=== PATIENT | female | born 1930 | race Caucasian/White ===

== ENCOUNTER → 2018-07-09 | Outpatient (CLI) | payer MEDICARE ==
--- NOTE | 2018-07-10 12:33 | ECHOF ---
Referral Reason:I35.0 Nonrheumatic aortic (valve) stenosis MEASUREMENTS -------- HEIGHT: 154.9 cm WEIGHT: 73.9 kg BP: IVSd: 1.5 cm (0.6 - 1.1) LVIDd: 2.2 cm (3.9 - 5.3) LVPWd: 1.7 cm (0.6 - 1.1) IVSs: 1.7 cm LVIDs: 1.3 cm LVPWs: 1.9 cm LAESV Index (A-L): 21.57 ml/m Ao Diam: 2.7 cm (2.0 - 3.7) AV Cusp: 0.8 cm (1.5 - 2.6) LA Diam: 2.8 cm (2.7 - 3.8) MV EXCURSION: 5.900 mm (> 18.000) MV EF SLOPE: 34 mm/s (70 - 150) EPSS: 0.3 cm MV E Isrrael: 0.71 m/s MV DecT: 197 ms MV A Isrrael: 1.17 m/s MV E/A Ratio: 0.61 AV maxP.63 mmHg AV meanP.79 mmHg AR PHT: 464 ms RAP: 5.00 mmHg RVSP: 23.61 mmHg FINDINGS -------- Sinus rhythm. This was a technically good study. The left ventricular size is normal. There is severe concentric left ventricular hypertrophy. Ove rall left ventricular systolic function is normal with, an EF between 55 - 60 %. The right ventricle is normal in size and function. The left atrium is normal in size. The right atrium is normal in size. Aortic valve is trileaflet and is moderately thickened. There is mild aortic regurgitation. There is mild aortic stenosis present. Peak/mean gradient across the Aortic Valve is 24.63mmHg / 13.79mm Hg. The mitral valve leaflets are mildly thickened. Mild mitral annular calcification present. Mild m itral regurgitation is present. Mild tricuspid regurgitation present. The right ventricular systolic pressure, as measured by Doppl er, is 23.61mmHg. Pulmonic valve appears structurally normal. The aortic root size is normal. The pericardium is normal. CONCLUSIONS -------- 1. Sinus rhythm. 2. This was a technically good study. 3. The left ventricular size is normal. 4. There is severe concentric left ventricular hypertrophy. 5. Overall left ventricular systolic function is normal with, an EF between 55 - 60 %. 6. The right ventricle is normal in size and function. 7. The left atrium is normal in size. 8. The right atrium is normal in size. 9. Aortic valve is trileaflet and is moderately thickened. 10. There is mild aortic regurgitation. 11. There is mild aortic stenosis present. 12. Peak/mean gradient across the Aortic Valve is 24.63mmHg / 13.79mmHg. 13. The mitral valve leaflets are mildly thickened. 14. Mild mitral annular calcification present. 15. Mild mitral regurgitation is present. 16. Mild tricuspid regurgitation present. 17. The right ventricular systolic pressure, as measured by Doppler, is 23.61mmHg. 18. Pulmonic valve appears structurally normal. 19. The aortic root size is normal. 20. The pericardium is normal. DESKTOP SUPPORT SPECIALIST: Christiana Cuevas RDCS
== END ==
LOC: RADECHMAIN 14:23
PROVIDERS: ATTEND Family Medicine
DX: I08.3 Combined rheumatic disorders of mitral, aortic and tricuspid valves (principal)
CPT/HCPCS: 93306

== ENCOUNTER 2019-04-24 14:40 | Inpatient (IN) | payer MEDICARE ==
--- NOTE | 2019-04-24 15:37 | ED ---
General Adult HPI - General Chief complaint: Shortness of Breath Stated complaint: SOB Time Seen by Provider: 04/24/19 14:50 Source: patient, RN notes reviewed Mode of arrival: wheelchair Limitations: no limitations - History of Present Illness Initial comments: This is an 89-year-old female presents emergency Department with a past medical history significant for COPD. Patient states over the last month she's been weaker and lightheaded particularly when she is more active. Patient states since yesterday she started to get shortness of breath with any activity and she decided to come to the emergency department after she spoke with her primary medical care doctor. Patient denies any recent fever or chills per patient states she's had a slight cough but no sputum production. Patient denies any chest pain or palpitations. Patient denies any abdominal pain patient denies nausea vomiting diarrhea. Patient denies any leg swelling or calf tenderness. Patient denies headache patient denies numbness or weakness. - Related Data Home Medications Medication Instructions Recorded Confirmed Albuterol Sulfate [Proair Hfa] 2 puff INHALATION RT-QID PRN 07/28/16 04/24/19 Ascorbic Acid [Vitamin C] 500 mg PO DAILY 07/28/16 04/24/19 Atenolol [Tenormin] 25 mg PO HS 07/28/16 04/24/19 HYDROcodone/APAP 5-325MG [[place] 1 tab PO TID PRN 07/28/16 04/24/19 5-325] Omeprazole 20 mg PO BID 07/28/16 04/24/19 Cholecalciferol [Vitamin D3 (25 5,000 unit PO DAILY 04/24/19 04/24/19 Mcg = 1000 Iu)] Levothyroxine Sodium [Synthroid] 100 mcg PO DAILY 04/24/19 04/24/19 Allergies Allergy/AdvReac Type Severity Reaction Status Date / Time Antihistamines - Alkylamine Allergy Unknown Verified 04/24/19 16:10 ascorbic acid Allergy Unknown Verified 04/24/19 16:10 [From PreserVision AREDS-2] cephalexin [From Keflex] Allergy Unknown Verified 04/24/19 16:10 clopidogrel [From Plavix] Allergy Unknown Verified 04/24/19 16:10 copper Allergy Unknown Verified 04/24/19 16:10 [From PreserVision AREDS-2] lavender (Lavandula Allergy Unknown Verified 04/24/19 16:10 angustifolia) lutein Allergy Unknown Verified 04/24/19 16:10 [From PreserVision AREDS-2] quinine Allergy Unknown Verified 04/24/19 16:10 vitamin E acetate (dl-alpha Allergy Unknown Verified 04/24/19 16:10 tocopheryl) [From PreserVision AREDS-2] zeaxanthin Allergy Unknown Verified 04/24/19 16:10 [From PreserVision AREDS-2] zinc oxide Allergy Unknown Verified 04/24/19 16:10 [From PreserVision AREDS-2] Review of Systems ROS Statement: Those systems with pertinent positive or pertinent negative responses have been documented in the HPI. ROS Other: All systems not noted in ROS Statement are negative. Past Medical History Past Medical History: COPD, GERD/Reflux, Hypertension, Myocardial Infarction ([place]), Osteoarthritis (OA), Thyroid Disorder Additional Past Medical History / Comment(s): hx AORTIC STENOSIS, OSTEOPOROSIS, hx ANEMIA, told years ago she had "silent heart attack", constipation, gallstones, vaginal itching, urinary leakage, Last Myocardial Infarction Date:: unknown History of Any Multi-Drug Resistant Organisms: None Reported Past Surgical History: Appendectomy, Section, Ear Surgery, Heart Catheterization With Stent, Hysterectomy, Joint Replacement, Orthopedic Surgery Additional Past Surgical History / Comment(s): ANGIOPLASTY, RIGHT WRIST ORIF, LEFT KNEE replacement, malissa CATARACTS Past Anesthesia/Blood Transfusion Reactions: No Reported Reaction Date of Last Stent Placement:: approx 2007 Past Psychological History: No Psychological Hx Reported Smoking Status: Former smoker Past Alcohol Use History: None Reported, Rare Past Drug Use History: None Reported - Past Family History Daughter(s) Family Medical History: Cancer Brother(s) Family Medical History: Deep Vein Thrombosis (DVT) General Exam - General Exam Comments Initial Comments: GENERAL: Patient is well-developed and well-nourished. Patient is nontoxic and well- hydrated and is in mild distress. ENT: Neck is soft and supple. No significant lymphadenopathy is noted. Oropharynx is clear. Moist mucous membranes. Neck has full range of motion without eliciting any pain. EYES: The sclera were anicteric and conjunctiva were pink and moist. Extraocular movements were intact and pupils were equal round and reactive to light. Eyelids were unremarkable. PULMONARY: Unlabored respirations. Good breath sounds bilaterally. No audible rales rhonchi or wheezing was noted. CARDIOVASCULAR: Patient is bradycardic at 45 beats a minute ABDOMEN: Soft and nontender with normal bowel sounds. SKIN: Skin is clear with no lesions or rashes and otherwise unremarkable. NEUROLOGIC: Patient is alert and oriented x3. Cranial nerves II through XII are grossly intact. Motor and sensory are also intact. Normal speech, volume and content. Symmetrical smile. MUSCULOSKELETAL: Normal extremities with adequate strength and full range of motion. LYMPHATICS: No significant lymphadenopathy is noted PSYCHIATRIC: Normal psychiatric evaluation. Limitations: no limitations Course Vital Signs 04/24/19 14:51 Temperature 98.6 F Pulse Rate 49 L Respiratory 18 Rate Blood Pressure 145/68 O2 Sat by Pulse 94 L Oximetry Medical Decision Making - Medical Decision Making EKG shows atrial flutter at a rate of 50 beats a minute QRS is 90 QT interval is 516 QTC is 470. Chest x-ray shows pulmonary edema. I spoke with Dr. Shultz he agreed to admit the patient admitted the patient and wrote admitting orders I repeated troponin was mildly elevated I added Lasix because of the pulmonary edema and I continued Lasix and heparin on the floor. I repeated troponins on the floor as well. I consult to cardiology. - Lab Data Result diagrams: 04/24/19 15:45 04/24/19 15:45 Lab Results 04/24/19 04/24/19 04/24/19 Range/Units 15:45 15:45 15:45 WBC 9.4 (3.8-10.6) k/uL RBC 4.26 (3.80-5.40) m/uL Hgb 12.8 (11.4-16.0) gm/dL Hct 40.3 (34.0-46.0) % MCV 94.7 (80.0-100.0) fL MCH 30.1 (25.0-35.0) pg MCHC 31.8 (31.0-37.0) g/dL RDW 15.2 (11.5-15.5) % Plt Count 247 (150-450) k/uL Neutrophils % 70 % Lymphocytes % 19 % Monocytes % 8 % Eosinophils % 1 % Basophils % 0 % Neutrophils # 6.5 (1.3-7.7) k/uL Lymphocytes # 1.8 (1.0-4.8) k/uL Monocytes # 0.8 (0-1.0) k/uL Eosinophils # 0.1 (0-0.7) k/uL Basophils # 0.0 (0-0.2) k/uL Sodium 137 (137-145) mmol/L Potassium 4.4 (3.5-5.1) mmol/L Chloride 107 (98-107) mmol/L Carbon Dioxide 20 L (22-30) mmol/L Anion Gap 10 mmol/L BUN 20 H (7-17) mg/dL Creatinine 1.13 H (0.52-1.04) mg/dL Est GFR (CKD-EPI)AfAm 50 (>60 ml/min/1.73 sqM) Est GFR (CKD-EPI)NonAf 44 (>60 ml/min/1.73 sqM) Glucose 116 H (74-99) mg/dL Calcium 9.5 (8.4-10.2) mg/dL Magnesium 1.9 (1.6-2.3) mg/dL Total Bilirubin 1.0 (0.2-1.3) mg/dL AST 25 (14-36) U/L ALT 36 (9-52) U/L Alkaline Phosphatase 70 (38-126) U/L Troponin I (0.000-0.034) ng/mL NT-Pro-B Natriuret Pep 9780 pg/mL Total Protein 6.7 (6.3-8.2) g/dL Albumin 3.7 (3.5-5.0) g/dL 04/24/19 Range/Units 15:45 WBC (3.8-10.6) k/uL RBC (3.80-5.40) m/uL Hgb (11.4-16.0) gm/dL Hct (34.0-46.0) % MCV (80.0-100.0) fL MCH (25.0-35.0) pg MCHC (31.0-37.0) g/dL RDW (11.5-15.5) % Plt Count (150-450) k/uL Neutrophils % % Lymphocytes % % Monocytes % % Eosinophils % % Basophils % % Neutrophils # (1.3-7.7) k/uL Lymphocytes # (1.0-4.8) k/uL Monocytes # (0-1.0) k/uL Eosinophils # (0-0.7) k/uL Basophils # (0-0.2) k/uL Sodium (137-145) mmol/L Potassium (3.5-5.1) mmol/L Chloride (98-107) mmol/L Carbon Dioxide (22-30) mmol/L Anion Gap mmol/L BUN (7-17) mg/dL Creatinine (0.52-1.04) mg/dL Est GFR (CKD-EPI)AfAm (>60 ml/min/1.73 sqM) Est GFR (CKD-EPI)NonAf (>60 ml/min/1.73 sqM) Glucose (74-99) mg/dL Calcium (8.4-10.2) mg/dL Magnesium (1.6-2.3) mg/dL Total Bilirubin (0.2-1.3) mg/dL AST (14-36) U/L ALT (9-52) U/L Alkaline Phosphatase (38-126) U/L Troponin I 0.071 H* (0.000-0.034) ng/mL NT-Pro-B Natriuret Pep pg/mL Total Protein (6.3-8.2) g/dL Albumin (3.5-5.0) g/dL Disposition Clinical Impression: Bradycardia, Pulmonary edema, New onset atrial flutter Disposition: ADMITTED IP TO THIS HOSP Referrals: Angela Da Silva MD [Primary Care Provider] - 1-2 days Time of Disposition: 17:05
[2019-04-24 16:25] LABS: Basophils % (A) 0 %; Eosinophils # (A) 0.1 k/uL (0-0.7); Eosinophils % (A) 1 %; HCT 40.3 % (34.0-46.0); HGB 12.8 gm/dL (11.4-16.0); Lymphocytes # (A) 1.8 k/uL (1.0-4.8); Lymphocytes % (A) 19 %; MCH 30.1 pg (25.0-35.0); MCHC 31.8 g/dL (31.0-37.0); MCV 94.7 fL (80.0-100.0); Mean Platelet Volume 8.7; Monocytes # (A) 0.8 k/uL (0-1.0); Monocytes % (A) 8 %; Neutrophils # (A) 6.5 k/uL (1.3-7.7); Neutrophils % (A) 70 %; Platelet Count 247 k/uL (150-450); RBC 4.26 m/uL (3.80-5.40); RDW 15.2 % (11.5-15.5); WBC 9.4 k/uL (3.8-10.6)
[2019-04-24 16:27] LABS: Albumin 3.7 g/dL (3.5-5.0); Calcium 9.5 mg/dL (8.4-10.2); Magnesium 1.9 mg/dL (1.6-2.3); Potassium 4.4 mmol/L (3.5-5.1); Total Protein 6.7 g/dL (6.3-8.2)
[2019-04-24 16:36] LABS: INR 1.1 (<1.2)
[2019-04-24 16:37] LABS: Partial Thromboplastin Time 22.6 sec (22.0-30.0); Prothrombin Time 11.5 sec (9.0-12.0)
--- NOTE | 2019-04-24 16:39 | XR ---
EXAMINATION: XR chest 2V DATE AND TIME: 04/24/2019 4:35 PM CLINICAL INDICATION: PHH; difficulty breathing TECHNIQUE: Departmental protocol COMPARISON: 11/14/2010 FINDINGS: The pulmonary vasculature is mildly silhouetted by a fine reticular pattern of increased attenuation bilaterally throughout the lungs and reaching the periphery as septal lines. No evidence of atelectas is or lung consolidation. Scant volume of bilateral pleural effusions noted. No pneumothorax or other abnormal gas collection. The cardiac silhouette is moderately enlarged. Tortuous thoracic aorta noted. The skeletal structures and soft tissues are negative for acute findings. IMPRESSION: Mild interstitial phase cardiogenic pulmonary edema pattern.
[2019-04-24] MEDS ORDERED: HEPARIN SODIUM,PORCINE 5,000 UNIT/ML 1 ML VIAL IV ONE (16:55)
[2019-04-24] MEDS ORDERED: NITROGLYCERIN SL TABS 0.4 MG TAB SUBLINGUAL PRN (16:55)
[2019-04-24] MEDS ORDERED: FUROSEMIDE 10 MG/ML 2 ML VIAL IV STA (17:00)
[2019-04-24 17:06] LABS: D-Dimer 0.78 mg/L FEU (<0.60)
[2019-04-24] MEDS: HEPARIN SOD,PORK IN 0.45% NACL 25,000 UNIT in 0.45% NACL 1 250ML.BAG IV SCH (17:44)
[2019-04-24 20:47] VITALS: BMI 33.5
[2019-04-24] MEDS: FUROSEMIDE 10 MG/ML 2 ML VIAL IV SCH (21:16)
[2019-04-24] MEDS ORDERED: ALBUTEROL NEBULIZED 2.5 MG/3 ML INHALATION PRN (23:25)
[2019-04-24] MEDS: LOSARTAN 25 MG TAB PO SCH (23:37)
[2019-04-24] MEDS: HYDROcodone/APAP 5-325MG 1 EACH TAB PO PRN (23:37)
[2019-04-25 04:39] LABS: Cholesterol 158 mg/dL (<200); HDL Cholesterol 47 mg/dL (40-60); LDL Cholesterol,Calculated 91 mg/dL (0-99); Triglycerides 99 mg/dL (<150)
[2019-04-25] MEDS ORDERED: LEVOTHYROXINE 100 MCG TAB PO SCH (06:30)
[2019-04-25 06:47] LABS: HCT 35.7 % (34.0-46.0); HGB 11.4 gm/dL (11.4-16.0); MCH 31.4 pg (25.0-35.0); MCHC 31.9 g/dL (31.0-37.0); MCV 98.4 fL (80.0-100.0); Mean Platelet Volume 8.4; Platelet Count 215 k/uL (150-450); RBC 3.62 m/uL (3.80-5.40); RDW 15.2 % (11.5-15.5)
[2019-04-25 07:24] LABS: Calcium 8.6 mg/dL (8.4-10.2); Potassium 4.4 mmol/L (3.5-5.1)
[2019-04-25] MEDS: LEVOTHYROXINE 100 MCG TAB PO SCH (08:11)
[2019-04-25] MEDS: ASCORBIC ACID 500 MG TAB PO SCH (08:11)
[2019-04-25] MEDS: CHOLECALCIFEROL 1,000 UNIT TAB PO SCH (08:11)
[2019-04-25] MEDS: FUROSEMIDE 10 MG/ML 2 ML VIAL IV SCH ×2 (08:11→20:05)
[2019-04-25] MEDS: ASPIRIN 325 MG TAB PO SCH (08:11)
[2019-04-25] MEDS: PANTOPRAZOLE 40 MG TABLET PO SCH ×2 (08:12→20:05)
[2019-04-25] MEDS: LOSARTAN 25 MG TAB PO SCH (08:12)
[2019-04-25] MEDS: HYDROcodone/APAP 5-325MG 1 EACH TAB PO PRN ×2 (08:20→23:16)
--- NOTE | 2019-04-25 08:33 | P.HPIM ---
History of Present Illness H&P Date: 04/25/19 Florencia Elam is an 89 year old female patient of Dr Da Silva who presented to [facility] emergency room with a chief complaint of worsening shortness of breath that started today before admission. Patient stated that for about 1 month she has been complaining of feeling weak and being lightheaded without any specific symptoms, she started having shortness of breath on the day prior to presentation. Patient denies any chest pain there is no fever or chills no cough no headache no dizziness no nausea or vomiting no abdominal pain no diarrhea no burning was urination no frequency or urgency and no hematuria. Patient had an echocardiogram in June 2018 which revealed normal left ventricular size and function was an ejection fraction of 55-60% EKG on presentation revealed mild interstitial phase cardiogenic pulmonary edema patient was given IV Lasix in the emergency room and her shortness of breath improved significantly. EKG on presentation revealed evidence of atrial fibrillation with slow ventricular response. Past Medical History Past Medical History: Atrial Fibrillation, COPD, GERD/Reflux, Hypertension, Myocardial Infarction ([place]), Osteoarthritis (OA), Thyroid Disorder Additional Past Medical History / Comment(s): hx AORTIC STENOSIS, OSTEOPOROSIS, hx ANEMIA, told years ago she had "silent heart attack", constipation, gallstones, vaginal itching, urinary leakage,. Pt states she was told when she had an NC, she had a temporary irregular heart rate but never followed up on it 04/24/19 Last Myocardial Infarction Date:: unknown History of Any Multi-Drug Resistant Organisms: None Reported Past Surgical History: Appendectomy, Section, Ear Surgery, Heart Catheterization With Stent, Hysterectomy, Joint Replacement, Orthopedic Surgery Additional Past Surgical History / Comment(s): ANGIOPLASTY, RIGHT WRIST ORIF, LEFT KNEE replacement, malissa CATARACTS Past Anesthesia/Blood Transfusion Reactions: No Reported Reaction Date of Last Stent Placement:: approx 2007 Past Psychological History: No Psychological Hx Reported Smoking Status: Former smoker Past Alcohol Use History: None Reported, Rare Additional Past Alcohol Use History / Comment(s): quit smoking 2007, smoked for 60 yrs, 1PPD Past Drug Use History: None Reported - Past Family History Daughter(s) Family Medical History: Cancer Brother(s) Family Medical History: Deep Vein Thrombosis (DVT) Medications and Allergies Home Medications Medication Instructions Recorded Confirmed Type Albuterol Sulfate [Proair Hfa] 2 puff INHALATION RT-QID PRN 07/28/16 04/24/19 History Ascorbic Acid [Vitamin C] 500 mg PO DAILY 07/28/16 04/24/19 History Atenolol [Tenormin] 25 mg PO HS 07/28/16 04/24/19 History HYDROcodone/APAP 5-325MG [[place] 1 tab PO TID PRN 07/28/16 04/24/19 History 5-325] Omeprazole 20 mg PO BID 07/28/16 04/24/19 History Cholecalciferol [Vitamin D3 (25 5,000 unit PO DAILY 04/24/19 04/24/19 History Mcg = 1000 Iu)] Levothyroxine Sodium [Synthroid] 100 mcg PO DAILY 04/24/19 04/24/19 History Allergies Allergy/AdvReac Type Severity Reaction Status Date / Time Antihistamines - Alkylamine Allergy Unknown Verified 04/24/19 16:10 ascorbic acid Allergy Unknown Verified 04/24/19 16:10 [From PreserVision AREDS-2] cephalexin [From Keflex] Allergy Unknown Verified 04/24/19 16:10 clopidogrel [From Plavix] Allergy Unknown Verified 04/24/19 16:10 copper Allergy Unknown Verified 04/24/19 16:10 [From PreserVision AREDS-2] lavender (Lavandula Allergy Unknown Verified 04/24/19 16:10 angustifolia) lutein Allergy Unknown Verified 04/24/19 16:10 [From PreserVision AREDS-2] quinine Allergy Unknown Verified 04/24/19 16:10 vitamin E acetate (dl-alpha Allergy Unknown Verified 04/24/19 16:10 tocopheryl) [From PreserVision AREDS-2] zeaxanthin Allergy Unknown Verified 04/24/19 16:10 [From PreserVision AREDS-2] zinc oxide Allergy Unknown Verified 04/24/19 16:10 [From PreserVision AREDS-2] Physical Exam Vitals: Vital Signs Temp Pulse Pulse Resp BP BP Pulse Ox 04/25/19 04:00 44 L 18 100/45 96 04/24/19 23:58 98 F 46 L 18 178/69 96 04/24/19 20:00 98 F 50 L 19 164/93 99 04/24/19 19:24 48 L 16 104/92 96 04/24/19 19:23 98.6 F 49 L 18 145/68 94 L 04/24/19 18:55 52 L 18 174/56 96 04/24/19 16:55 48 L 18 172/68 96 04/24/19 14:51 98.6 F 49 L 18 145/68 94 L Intake and Output 04/24/19 04/25/19 04/25/19 22:59 06:59 14:59 Intake Total 64.514 54.784 Output Total 600 100 Balance -535.486 -45.216 Intake: Intake, IV Titration 64.514 54.784 Amount Heparin Sod,Pork in 0.45% 64.514 54.784 NaCl 25,000 unit In 0.45 % NaCl 1 250ml.bag @ 12 UNITS/KG/HR 8.981 mls/hr IV .Q24H [facility] Rx#: [id number] Output: Urine 600 100 Other: Voiding Method Diaper Diaper Incontinent Incontinent # Voids 1 Weight 74.1 kg In general patient is alert and oriented 3 in no apparent distress HEENT head normocephalic and atraumatic Neck is supple no JVD no goiter no lymphadenopathy no carotid bruit Chest exam reveals a few scattered rhonchi no wheezing Cardiac exam reveals irregular heart sounds S1 and S2 with bradycardia no gallops no murmurs Abdomen is soft nontender no organomegaly with normal bowel sounds Extremity exam reveals no edema no cyanosis or clubbing Neurological examination reveals no gross focal deficit Results CBC & Chem 7: 04/25/19 05:59 04/25/19 05:59 Labs: Abnormal Lab Results - Last 24 Hours (Table) 04/24/19 04/24/19 04/24/19 Range/Units 15:45 15:45 15:45 RBC (3.80-5.40) m/uL APTT (22.0-30.0) sec D-Dimer 0.78 H (<0.60) mg/L FEU Carbon Dioxide 20 L (22-30) mmol/L BUN 20 H (7-17) mg/dL Creatinine 1.13 H (0.52-1.04) mg/dL Glucose 116 H (74-99) mg/dL Troponin I 0.071 H* (0.000-0.034) ng/mL 04/24/19 04/24/19 04/25/19 Range/Units 21:59 23:53 03:47 RBC (3.80-5.40) m/uL APTT 49.4 H (22.0-30.0) sec D-Dimer (<0.60) mg/L FEU Carbon Dioxide (22-30) mmol/L BUN (7-17) mg/dL Creatinine (0.52-1.04) mg/dL Glucose (74-99) mg/dL Troponin I 0.053 H* 0.043 H* (0.000-0.034) ng/mL 04/25/19 04/25/19 04/25/19 Range/Units 05:59 05:59 05:59 RBC 3.62 L (3.80-5.40) m/uL APTT 45.5 H (22.0-30.0) sec D-Dimer (<0.60) mg/L FEU Carbon Dioxide (22-30) mmol/L BUN 23 H (7-17) mg/dL Creatinine 1.53 H (0.52-1.04) mg/dL Glucose (74-99) mg/dL Troponin I (0.000-0.034) ng/mL Thrombosis Risk Factor Assmnt - Choose All That Apply Any of the Below Risk Factors Present?: Yes Each Factor Represents 1 point: Obesity (BMI >25), Swollen legs (current) Other Risk Factors: Yes Each Risk Factor Represents 3 Points: Age 75 years or older Other congenital or acquired thrombophilia - If yes, enter type in comment: No Thrombosis Risk Factor Assessment Total Risk Factor Score: 5 Thrombosis Risk Factor Assessment Level: High Risk Assessment and Plan Assessment: #1 worsening shortness of breath multifactorial related to acute congestive heart failure with pulmonary edema possibly diastolic heart failure #2 atrial fibrillation with slow ventricular response #3 slight elevation in troponin level #4 underlying history of hypothyroidism Will check TSH #5 underlying history of COPD maintained on albuterol updraft at home Plan at this time to continue was current management cardiology consultation has been requested Patient was started on IV heparin Her shortness of breath has improved significantly after 1 dose of IV Lasix Will monitor closely
--- NOTE | 2019-04-25 10:28 | CONS ---
CONSULTATION CHIEF COMPLAINT: Shortness of breath. Florencia is an 89-year-old lady with history of hypothyroidism, hypertension, prior coronary artery disease who presented to hospital complaining of worsening shortness of breath. It is mild to moderate intensity, came on with exertion and was relieved with rest. These symptoms were going on for the last one month and have gotten worse over the last several days prior to coming in. She does not have any chest pain. Denies palpitations, syncope, dizziness or focal neurological deficits. There is no history of leg edema. She had an echocardiogram done in June of 2018 that revealed sinus with high-grade AV block intermittently. It showed normal LV systolic function with mild aortic stenosis. At the time of my evaluation this morning, she appears comfortable at rest and is free of significant symptoms. EKG on her initial presentation revealed atrial fibrillation with slow ventricular rate to last night she had episodes where she was in sinus rhythm with high-grade AV block. She was on Tenormin. This has been stopped. The patient's shortness of breath is probably related to atrial fibrillation with slow ventricular rate, and she will benefit from a permanent pacemaker. She has known CAD and had prior angioplasty. On this admission the troponins are elevated, but this happened in the context of elevated creatinine. Her creatinine has gone up to 1.5 from 1.1 on admission. LDL cholesterol is 91. She also had elevated BNP and received Lasix for acute onset of diastolic heart failure. PAST MEDICAL HISTORY: Past medical history is significant for: 1. CAD, status post angioplasty. 2. Hypothyroidism. MEDICATIONS: Medications at home included: 1. Omeprazole. 2. Synthroid. 3. Thor. 4. Vitamin D. 5. Tenormin. 6. Vitamin C. ALLERGIES: She has MULTIPLE DRUG ALLERGIES, includin. KEFLEX. 2. PLAVIX. 3. QUININE. 4. ZINC OXIDE. FAMILY HISTORY: Negative for premature coronary artery disease. SOCIAL HISTORY: Negative for current smoking, EtOH abuse or drug abuse. REVIEW OF SYSTEMS: HEENT is unremarkable. CARDIAC: As described above. RESPIRATORY: As described above. GI: Negative. GENITOURINARY: Negative. ALLERGY/IMMUNOLOGIC: Negative. SKIN: Negative. MUSCULOSKELETAL: Significant for arthritis. PSYCHOSOCIAL: Negative. ENDOCRINE: Negative. DERMATOLOGICAL: Negative. CONSTITUTIONAL: Negative. ONCOLOGICAL: Negative. Rest of the system review is not relevant. PHYSICAL EXAMINATION: Heart rate is 44 beats per minute. Blood pressure is 130/90, respiratory rate 18. Oxygen saturation is 97%. There is no jugular venous distention. Carotid upstroke is normal. There is no bruit. Chest exam reveals good air entry bilaterally. Heart exam reveals first and second heart sounds. No gallop. Has an ejection systolic murmur. Abdomen is soft. Examination of extremities did not reveal any edema. Peripheral pulses are felt. ASSESSMENT: 1. Atrial fibrillation with slow ventricular rate. 2. Shortness of breath due to a combination of diastolic heart failure and bradyarrhythmia. 3. Elevated troponin secondary to renal insufficiency. 4. Coronary artery disease, status post angioplasty. PLAN: I will continue the patient on IV heparin. She will need a permanent pacemaker. This will be done on Saturday for symptomatic bradycardia. I will obtain a 2D echo on this admission to assess her LV function. GYPSY / MARINON: [id number] /
[2019-04-25 11:55] LABS: Glucose,Whole Blood 102 mg/dL (75-99)
[2019-04-25] MEDS: HEPARIN SOD,PORK IN 0.45% NACL 25,000 UNIT in 0.45% NACL 1 250ML.BAG IV SCH (20:04)
[2019-04-26] MEDS: ASPIRIN 325 MG TAB PO SCH (09:03)
[2019-04-26] MEDS: LEVOTHYROXINE 100 MCG TAB PO SCH (09:03)
[2019-04-26] MEDS: CHOLECALCIFEROL 1,000 UNIT TAB PO SCH (09:03)
[2019-04-26] MEDS: LOSARTAN 25 MG TAB PO SCH (09:03)
[2019-04-26] MEDS: FUROSEMIDE 10 MG/ML 2 ML VIAL IV SCH (09:03)
[2019-04-26] MEDS: PANTOPRAZOLE 40 MG TABLET PO SCH ×2 (09:03→20:17)
[2019-04-26] MEDS: ASCORBIC ACID 500 MG TAB PO SCH (09:04)
[2019-04-26] MEDS: HYDROcodone/APAP 5-325MG 1 EACH TAB PO PRN ×2 (09:09→20:17)
--- NOTE | 2019-04-26 10:57 | ECHOF ---
Referral Reason:Aflutter/bradycardia MEASUREMENTS -------- HEIGHT: 149.9 cm WEIGHT: 73.9 kg BP: 126/53 RVIDd: 2.9 cm (< 3.3) IVSd: 1.3 cm (0.6 - 1.1) LVIDd: 3.6 cm (3.9 - 5.3) LVPWd: 1.2 cm (0.6 - 1.1) IVSs: 1.7 cm LVIDs: 2.1 cm LVPWs: 1.6 cm LA Diam: 3.4 cm (2.7 - 3.8) LAESV Index (A-L): 38.79 ml/m Ao Diam: 3.4 cm (2.0 - 3.7) AV Cusp: 1.4 cm (1.5 - 2.6) MV EXCURSION: 7.158 mm (> 18.000) MV EF SLOPE: 24 mm/s (70 - 150) EPSS: 0.6 cm MV E Isrrael: 1.22 m/s MV DecT: 259 ms MV A Isrrael: 1.15 m/s MV E/A Ratio: 1.07 AV maxP.31 mmHg AV meanP.39 mmHg AR PHT: 440 ms RAP: 15.00 mmHg RVSP: 52.89 mmHg FINDINGS -------- Sinus rhythm. This was a technically good study. The left ventricular size is normal. There is mild concentric left ventricular hypertrophy. Overa ll left ventricular systolic function is normal with, an EF between 60 - 65 %. The right ventricle is normal in size. LA is moderately dilated 34-39 ml/m2 The right atrium is normal in size. Interatrial and interventricular septum intact. There is moderate aortic valve sclerosis. There is mild aortic regurgitation. There is moderate a ortic stenosis present. Peak/mean gradient across the Aortic Valve is 32.31mmHg / 20.39mmHg. The mitral valve leaflets are mildly thickened. Mild mitral annular calcification present. Modera te mitral regurgitation is present. The peak and mean MV gradients are 10.24mmHg 3.79mmHg as measu red by doppler. Mild mitral stenosis. Mild tricuspid regurgitation present. There is moderate pulmonary hypertension. The right ventric ular systolic pressure, as measured by Doppler, is 52.89mmHg. Trace/mild (physiologic) pulmonic regurgitation. The aortic root size is normal. The inferior vena cava is dilated with poor inspiratory collapse which is consistent with estimated r ight atrial pressure of 15 mmHg. There is no pericardial effusion. CONCLUSIONS -------- 1. Sinus rhythm. 2. This was a technically good study. 3. The left ventricular size is normal. 4. There is mild concentric left ventricular hypertrophy. 5. Overall left ventricular systolic function is normal with, an EF between 60 - 65 %. 6. The right ventricle is normal in size. 7. LA is moderately dilated 34-39 ml/m2 8. The right atrium is normal in size. 9. Interatrial and interventricular septum intact. 10. There is moderate aortic valve sclerosis. 11. There is mild aortic regurgitation. 12. There is moderate aortic stenosis present. 13. Peak/mean gradient across the Aortic Valve is 32.31mmHg / 20.39mmHg. 14. The mitral valve leaflets are mildly thickened. 15. Mild mitral annular calcification present. 16. Moderate mitral regurgitation is present. 17. The peak and mean MV gradients are 10.24mmHg 3.79mmHg as measured by doppler. 18. Mild mitral stenosis. 19. Mild tricuspid regurgitation present. 20. There is moderate pulmonary hypertension. 21. The right ventricular systolic pressure, as measured by Doppler, is 52.89mmHg. 22. Trace/mild (physiologic) pulmonic regurgitation. 23. The aortic root size is normal. 24. The inferior vena cava is dilated with poor inspiratory collapse which is consistent with estimat ed right atrial pressure of 15 mmHg. 25. There is no pericardial effusion. UNDERWRITING SUPPORT SPECIALIST: Tiny Gimenez RDCS
--- NOTE | 2019-04-26 11:15 | P.PN ---
Subjective Progress Note Date: 04/26/19 Is is an 89-year-old female with history of hypothyroidism, hypertension, coronary artery disease, who presented to the hospital with symptoms of progressively worsening shortness of breath. Her EKG on presentation here showed atrial fibrillation with a slow ventricular rate and episodes of intermittent high degree AV block. She had been on Tenormin which was discontinued, and in spite of that her rate remains in the 40s today. It has been recommended by Dr. Aguilar that the patient undergo implantation of a permanent pacemaker. This will be performed tomorrow by Dr. Jackson. Blood pressure 132/58 this morning, heart rate 42, 98% on 2 of oxygen. Objective - Vital Signs Vital signs: Vital Signs Temp 98 F 04/26/19 08:00 Pulse 45 L 04/26/19 08:00 Resp 18 04/26/19 08:00 BP 132/59 04/26/19 08:00 Pulse Ox 98 04/26/19 08:00 Intake & Output 04/25/19 04/26/19 04/26/19 18:59 06:59 18:59 Intake Total 534.784 117.202 223.132 Output Total 400 700 Balance 134.784 -582.798 223.132 Weight 74.162 kg Intake: Intake, IV Titration 54.784 117.202 103.132 Amount Heparin Sod,Pork in 0.45% 54.784 117.202 103.132 NaCl 25,000 unit In 0.45 % NaCl 1 250ml.bag @ 12 UNITS/KG/HR 8.981 mls/hr IV .Q24H [facility] Rx#: [id number] Oral 480 120 Output: Urine 400 700 Other: Voiding Method Diaper Diaper Diaper Incontinent Incontinent Incontinent # Voids 2 1 # Bowel Movements 0 - Exam PHYSICAL EXAMINATION: GENERAL: 89-year-old female in no acute distress at the time of my examination HEENT: Head is atraumatic, normocephalic. Pupils equal, round. Sclera ani cteric. Conjunctiva are clear. Mucous membranes of the mouth are moist. Neck is supple. There is no elevated jugular venous pressure. No carotid bruit is heard. HEART EXAMINATION: Heart S1 S2 irregularly irregular systolic ejection murmur is heard. CHEST EXAMINATION: Lungs are clear to auscultation and precussion. No chest wall tenderness is noted on palpation or with deep breathing. ABDOMEN: Soft, nontender. Bowel sounds are heard. No organomegaly noted. EXTREMITIES: 2+ peripheral pulses with no evidence of peripheral edema and no calf tenderness noted. NEUROLOGIC patient is awake, alert and oriented 3 . - Labs CBC & Chem 7: 04/25/19 05:59 04/25/19 05:59 Labs: Abnormal Lab Results - Last 24 Hours (Table) 04/25/19 04/26/19 Range/Units 11:50 05:42 APTT 43.9 H (22.0-30.0) sec POC Glucose (mg/dL) 102 H (75-99) mg/dL Microbiology - Last 24 Hours (Table) 04/24/19 15:45 Blood Culture - Preliminary Blood No Growth after 24 hours Assessment and Plan Plan: Assessment and plan #1 persistent atrial fibrillation, slow ventricular response #2 shortness of breath, likely secondary to bradycardia arrhythmia #3 known history of coronary artery disease with prior PCI #4 hypertension #5 hyperlipidemia #6 non-[place] troponin elevation, likely secondary to renal insufficiency Plan Patient will undergo implantation of a permanent pacemaker tomorrow with Dr. Jackson. We will obtain a TSH level. Discontinue IV Lasix. Decrease aspirin 81 mg daily. The risks and the benefits were explained with the patient in detail. DNP note has been reviewed, I agree with a documented findings and plan of care. Patient was seen and examined.
[2019-04-26] MEDS: SODIUM CHLORIDE 0.9% 1,000 ML IV SCH ×2 (12:23)
[2019-04-26] MEDS: HEPARIN SOD,PORK IN 0.45% NACL 25,000 UNIT in 0.45% NACL 1 250ML.BAG IV SCH (18:32)
[2019-04-27] MEDS ORDERED: ceFAZolin 1,000 MG in SODIUM CHLORIDE 0.9% IRRIGATIO 250 ML IRRIGATION ONE (06:00)
[2019-04-27 07:22] LABS: Calcium 8.9 mg/dL (8.4-10.2); Potassium 4.8 mmol/L (3.5-5.1); Total Bilirubin 0.4 mg/dL (0.2-1.3); Total Protein 5.7 g/dL (6.3-8.2)
[2019-04-27 07:35] LABS: Basophils # (A) 0.1 k/uL (0-0.2); Basophils % (A) 1 %; Eosinophils # (A) 0.3 k/uL (0-0.7); Eosinophils % (A) 4 %; HCT 37.5 % (34.0-46.0); HGB 11.5 gm/dL (11.4-16.0); Lymphocytes # (A) 1.7 k/uL (1.0-4.8); Lymphocytes % (A) 27 %; MCH 30.3 pg (25.0-35.0); MCHC 30.6 g/dL (31.0-37.0); MCV 98.8 fL (80.0-100.0); Mean Platelet Volume 8.3; Monocytes # (A) 0.5 k/uL (0-1.0); Monocytes % (A) 8 %; Neutrophils # (A) 3.6 k/uL (1.3-7.7); Neutrophils % (A) 56 %; Platelet Count 228 k/uL (150-450); RDW 15.2 % (11.5-15.5); WBC 6.3 k/uL (3.8-10.6)
[2019-04-27] MEDS: SODIUM CHLORIDE 0.9% 1,000 ML IV SCH ×2 (08:53)
[2019-04-27] MEDS: ASCORBIC ACID 500 MG TAB PO SCH (08:53)
[2019-04-27] MEDS: LOSARTAN 25 MG TAB PO SCH (08:54)
[2019-04-27] MEDS: FUROSEMIDE 20 MG TAB PO SCH (08:54)
[2019-04-27] MEDS: CHOLECALCIFEROL 1,000 UNIT TAB PO SCH (08:54)
[2019-04-27] MEDS: ASPIRIN 81 MG PO SCH (08:54)
[2019-04-27] MEDS: LEVOTHYROXINE 100 MCG TAB PO SCH (08:54)
[2019-04-27] MEDS: PANTOPRAZOLE 40 MG TABLET PO SCH ×2 (08:54→19:44)
[2019-04-27] MEDS ORDERED: SODIUM CHLORIDE 0.9% 500 ML 500 ML IV ONE (10:32)
[2019-04-27] MEDS ORDERED: IOPAMIDOL-370 50ML BTL INJ ONE (10:35)
[2019-04-27] MEDS ORDERED: LIDOCAINE 1% INJ 10MG/ML (20 ML MDV) ONE (10:53)
[2019-04-27] MEDS ORDERED: MIDAZOLAM PF (FBP) 2 MG/2 ML VIAL IV ONE (11:08)
[2019-04-27] MEDS ORDERED: fentaNYL (PF) 50 MCG/ML 2 ML AMP ONE (11:09)
[2019-04-27] MEDS ORDERED: LIDOCAINE 1% INJ 10MG/ML (20 ML MDV) SQ ONE (11:09)
[2019-04-27] MEDS ORDERED: fentaNYL (PF) 50 MCG/ML 2 ML AMP IV ONE (11:12)
--- NOTE | 2019-04-27 11:53 | P.PN ---
Subjective Progress Note Date: 04/27/19 Florencia Elam is an 89 year old female patient of Dr Da Silva who presented to [facility] emergency room with a chief complaint of worsening shortness of breath that started today before admission. Patient stated that for about 1 month she has been complaining of feeling weak and being lightheaded without any specific symptoms, she started having shortness of breath on the day prior to presentation. Patient denies any chest pain there is no fever or chills no cough no headache no dizziness no nausea or vomiting no abdominal pain no diarrhea no burning was urination no frequency or urgency and no hematuria. Patient had an echocardiogram in June 2018 which revealed normal left ventricular size and function was an ejection fraction of 55-60% EKG on presentation revealed mild interstitial phase cardiogenic pulmonary edema patient was given IV Lasix in the emergency room and her shortness of breath improved significantly. EKG on presentation revealed evidence of atrial fibrillation with slow ventricular response. On 04/27/2018 patient is alert and oriented 3. Patient is going on for pacemaker placement per cardiology. Lasix has been transitioned to by mouth. Patient denies shortness breath or chest pain. Patient denies nausea vomiting and diarrhea. Patient denies any urinary burning or frequency Objective - Vital Signs Vital signs: Vital Signs Temp 96.7 F L 04/27/19 08:00 Pulse 45 L 04/27/19 08:00 Resp 18 04/27/19 03:10 BP 181/76 04/27/19 08:00 Pulse Ox 94 L 04/27/19 08:00 Intake & Output 04/26/19 04/27/19 04/27/19 18:59 06:59 18:59 Intake Total 818.215 50 Output Total 701 Balance 117.215 50 Weight 73.7 kg Intake: IV 50 Intake, IV Titration 218.215 Amount Heparin Sod,Pork in 0.45% 218.215 NaCl 25,000 unit In 0.45 % NaCl 1 250ml.bag @ 12 UNITS/KG/HR 8.981 mls/hr IV .Q24H [facility] Rx#: [id number] Oral 600 0 Output: Urine 701 Other: Voiding Method Diaper Bedside Commode Bedside Commode Incontinent # Voids 1 # Bowel Movements 0 - Exam In general patient is alert and oriented 3 in no apparent distress HEENT head normocephalic and atraumatic Neck is supple no JVD no goiter no lymphadenopathy no carotid bruit Chest exam reveals a few scattered rhonchi no wheezing Cardiac exam reveals irregular heart sounds S1 and S2 with bradycardia no gallops no murmurs Abdomen is soft nontender no organomegaly with normal bowel sounds Extremity exam reveals no edema no cyanosis or clubbing Neurological examination reveals no gross focal deficit - Labs CBC & Chem 7: 04/27/19 06:45 04/27/19 06:45 Labs: Abnormal Lab Results - Last 24 Hours (Table) 04/26/19 04/27/19 04/27/19 Range/Units 14:00 06:45 06:45 MCHC 30.6 L (31.0-37.0) g/dL APTT 55.1 H (22.0-30.0) sec BUN 33 H (7-17) mg/dL Creatinine 1.62 H (0.52-1.04) mg/dL Total Protein 5.7 L (6.3-8.2) g/dL Albumin 3.0 L (3.5-5.0) g/dL 04/27/19 Range/Units 06:45 MCHC (31.0-37.0) g/dL APTT 54.8 H (22.0-30.0) sec BUN (7-17) mg/dL Creatinine (0.52-1.04) mg/dL Total Protein (6.3-8.2) g/dL Albumin (3.5-5.0) g/dL Microbiology - Last 24 Hours (Table) 04/24/19 15:45 Blood Culture - Preliminary Blood No Growth after 48 hours Assessment and Plan Assessment: #1 worsening shortness of breath multifactorial related to acute congestive heart failure with pulmonary edema possibly diastolic heart failure #2 atrial fibrillation with slow ventricular response #3 slight elevation in troponin level #4 underlying history of hypothyroidism. TSH 2.170 #5 underlying history of COPD maintained on albuterol updraft at home #6. Acute kidney injury. Creatinine increasing to 1.6 to and bun 33. We'll continue to monitor. Patient has been transitioned to oral Lasix Patient to undergo pacemaker placement today. DVT prophylaxis heparin drip. GI prophylaxis Protonix I performed an examination of the patient and discussed their management with the Nurse Practitioner. I have reviewed the Nurse Practitioner's notes and a gree with the documented findings and plan of care
[2019-04-27] MEDS ORDERED: ACETAMINOPHEN TAB 325 MG TAB PO PRN (12:02)
--- NOTE | 2019-04-27 12:09 | P.PCN ---
Date of Procedure: 04/27/19 Preoperative Diagnosis: Sick sinus syndrome, atrial flutter/fibrillation and also evidence of high degree AV block Postoperative Diagnosis: Permanent pacemaker implantation Procedure(s) Performed: Insertion of the permanent pacemaker, single chamber, axillary venography Description of Procedure: HISTORY: This is a 89-year-old female was admitted to the hospital with evidence of sick sinus syndrome and bradycardia with underlying high degree AV block and also atrial flutter/fibrillation. Patient is advised to have permanent pacemaker implantation. CONSENT:I have discussed the risks, benefits and alternative therapies for the above-mentioned procedure and for both sedation/analgesia as well as necessary blood product administration, if indicated, as they pertain to this patient. The patient has indicated understanding and acceptance of the risks and procedures discussed. PROCEDURE: Patient was brought to the lab in a fasting state. Patient was prepped and draped in the usual fashion. Patient was given IV sedation with fentanyl and Versed. The skin below the left clavicle was infiltrated with lidocaine. An incision was made parallel to deltopectoral groove was deepened until the pectoral fascia was exposed. A pocket was created by blunt dissection and cautery. Axillary venography was performed to delineate the course of the axillary vein. A single stick were performed into extrathoracic portion of the axillary vein and a single sheath was advanced over the guidewire and left in subclavian vein. Conscious Sedation: Versed 0.5mg Fentanyl 25 g Duration 41 minutes LEADS: VENTRICULAR: This is manufactured by [employer]. Model number is [id number] and the serial number is [id number] The ventricular lead is maneuvered l with help of a straight and curved stylets into the left ventricle apical region. Satisfactory position was obtained and threshold measurements were made. THRESHOLDS: VENTRICLE: The minimal patient threshold was 0.5 at pulse width of 0.5 ms. The impedance was 1584. The R-wave is 22.4. The leads and pulse generator remained in the pocket after it was washed with antibiotics. Pocket was closed in the usual fashion. The fascia was closed with 2-0 Prolene ,the subcutaneous tissue was closed with 3-0 Prolene and the skin was closed with 4-0 Prolene. PROGRAMMING: MODE: VVI RATE: 60 to 130 OUTPUT: Ventricle: 3.5 V FINAL IMPRESSION: #1. Axillary venography #2. Successful implantation of single-chamber permanent pacemaker implantation COMPLICATIONS:. None PLAN:. Patient will be monitored on the telemetry unit. Chest x-ray will obtain in the morning. Prophylactic antibiotics to be continued
[2019-04-27 19:46] VITALS: PULSE 60
[2019-04-28] MEDS: HYDROcodone/APAP 5-325MG 1 EACH TAB PO PRN (00:41)
[2019-04-28 05:37] VITALS: RESP 16
[2019-04-28] MEDS: SODIUM CHLORIDE 0.9% 1,000 ML IV SCH (05:38)
[2019-04-28 07:51] LABS: Basophils % (A) 0 %; Eosinophils # (A) 0.1 k/uL (0-0.7); Eosinophils % (A) 1 %; HCT 40.6 % (34.0-46.0); HGB 12.4 gm/dL (11.4-16.0); Hypochromasia Slight; Lymphocytes # (A) 1.2 k/uL (1.0-4.8); Lymphocytes % (A) 13 %; MCH 29.9 pg (25.0-35.0); MCHC 30.6 g/dL (31.0-37.0); MCV 97.6 fL (80.0-100.0); Monocytes # (A) 0.6 k/uL (0-1.0); Monocytes % (A) 7 %; Neutrophils # (A) 6.5 k/uL (1.3-7.7); Neutrophils % (A) 75 %; Platelet Count 235 k/uL (150-450); RBC 4.15 m/uL (3.80-5.40); RDW 14.2 % (11.5-15.5); WBC 8.7 k/uL (3.8-10.6)
[2019-04-28 08:08] LABS: Albumin 3.4 g/dL (3.5-5.0); Calcium 9.1 mg/dL (8.4-10.2); Total Bilirubin 0.7 mg/dL (0.2-1.3); Total Protein 6.4 g/dL (6.3-8.2)
[2019-04-28 08:28] LABS: Potassium 5.1 mmol/L (3.5-5.1)
[2019-04-28] MEDS: ASCORBIC ACID 500 MG TAB PO SCH (09:16)
[2019-04-28] MEDS: LOSARTAN 25 MG TAB PO SCH (09:16)
[2019-04-28] MEDS: LEVOTHYROXINE 100 MCG TAB PO SCH (09:16)
[2019-04-28] MEDS: PANTOPRAZOLE 40 MG TABLET PO SCH (09:16)
[2019-04-28] MEDS: CHOLECALCIFEROL 1,000 UNIT TAB PO SCH (09:16)
[2019-04-28] MEDS: FUROSEMIDE 20 MG TAB PO SCH (09:16)
[2019-04-28] MEDS: ASPIRIN 81 MG PO SCH (09:16)
[2019-04-28] MEDS: APIXABAN 2.5 MG TABLET PO SCH ×2 (09:16→09:20)
[2019-04-28 10:48] VITALS: TEMP 96.7
[2019-04-28 11:56] LABS: Glucose,Whole Blood 112 mg/dL (75-99)
--- NOTE | 2019-04-28 13:00 | XR ---
EXAMINATION TYPE: XR chest 2V DATE OF EXAM: 04/28/2019 COMPARISON: 04/24/2019 HISTORY: Lead check. Pacemaker insertion. TECHNIQUE: Frontal and lateral views of the chest are obtained. FINDINGS: There is pulmonary hyperinflation indicative of underlying COPD. Coarsened interstitial citlalli ng markings suggests a component of interstitial lung disease. Trace pleural effusions blunt the cost ophrenic angles and bibasilar airspace disease likely represents atelectasis. There is a partial intr athoracic stomach noted. Single lead left-sided cardiac device has been inserted overlying the ventri cles. No postprocedural pneumothorax is seen. Cardiomediastinal silhouette is enlarged. There is diff use osseous demineralization. IMPRESSION: Status post single lead left-sided cardiac device without postprocedural pneumothorax. C hronic lung changes with COPD, probable interstitial lung disease, trace pleural effusions, and bibas ilar atelectasis.
[2019-04-28] MEDS ORDERED: DOCUSATE 100 MG CAP PO SCH (13:15)
--- NOTE | 2019-04-28 14:17 | P.DS ---
Providers Date of admission: 04/25/19 15:34 Expected date of discharge: 04/28/19 Attending physician: Hussein Shultz Consults: 04/24/19 16:55 Consult Physician Urgent Consulting Provider: [facility] Consult Reason/Comments: Atrial flutter, bradycardia Do you want consulting provider notified?: Yes Primary care physician: Angela Da Silva [place] [facility] Course: Discharge diagnosis #1 worsening shortness of breath multifactorial related to acute congestive heart failure with pulmonary edema possibly diastolic heart failure #2 atrial fibrillation with slow ventricular response #3 slight elevation in troponin level #4 underlying history of hypothyroidism. TSH 2.170 #5 underlying history of COPD maintained on albuterol updraft at home #6. Acute kidney injury. Creatinine increasing to 1.6 to and bun 33. We'll continue to monitor. Patient has been transitioned to oral Lasix Status post pacemaker placement. Patient will be DC'd on eliquis, Lasix and Cozaar. Patient claimed to be DC'd to [facility] for rehab Hospital course Florencia Elam is an 89 year old female patient of Dr Da Silva who presented to [facility] emergency room with a chief complaint of worsening shortness of breath that started today before admission. Patient stated that for about 1 month she has been complaining of feeling weak and being lightheaded without any specific symptoms, she started having shortness of breath on the day prior to presentation. Patient denies any chest pain there is no fever or chills no cough no headache no dizziness no nausea or vomiting no abdominal pain no diarrhea no burning was urination no frequency or urgency and no hematuria. Patient had an echocardiogram in June 2018 which revealed normal left ventricular size and function was an ejection fraction of 55-60% EKG on presentation revealed mild interstitial phase cardiogenic pulmonary edema patient was given IV Lasix in the emergency room and her shortness of breath improved significantly. EKG on presentation revealed evidence of atrial fibrillation with slow ventricular response. On 04/27/2018 patient is alert and oriented 3. Patient is going on for pacemaker placement per cardiology. Lasix has been transitioned to by mouth. Patient denies shortness breath or chest pain. Patient denies nausea vomiting and diarrhea. Patient denies any urinary burning or frequency On 04/28/2018 patient is alert and oriented 3. Creatinine has improved slightly. Patient underwent pacemaker placement yesterday. Patient complains of generalized discomfort today. Colace also started for constipation. Patient denies chest pain or shortness breath. Patient denies nausea vomiting or diarrhea. Patient denies any urinary burning or frequency. CBC and CMP to be drawn in 2 days at [facility]. I performed an examination of the patient and discussed their management with the Nurse Practitioner. I have reviewed the Nurse Practitioner's notes and agree with the documented findings and plan of care Patient Condition at Discharge: Stable Plan - Discharge Summary Discharge Rx Participant: No New Discharge Prescriptions: New Docusate [Colace] 100 mg PO BID cap Aspirin 81 mg PO DAILY chew Losartan [Cozaar] 25 mg PO DAILY tab Apixaban [Eliquis] 2.5 mg PO BID@0800,2000 tablet Furosemide [Lasix] 20 mg PO DAILY tab Acetaminophen Tab [Tylenol] 650 mg PO Q6HR PRN tab PRN Reason: Mild Pain Continue Ascorbic Acid [Vitamin C] 500 mg PO DAILY Omeprazole 20 mg PO BID Albuterol Sulfate [Proair Hfa] 2 puff INHALATION RT-QID PRN PRN Reason: Shortness Of Breath Cholecalciferol [Vitamin D3 (25 Mcg = 1000 Iu)] 5,000 unit PO DAILY Levothyroxine Sodium [Synthroid] 100 mcg PO DAILY HYDROcodone/APAP 5-325MG [[place] 5-325] 1 tab PO TID PRN 14 Days #42 tab PRN Reason: Pain Discontinued Atenolol [Tenormin] 25 mg PO HS Discharge Medication List Albuterol Sulfate [Proair Hfa] 2 puff INHALATION RT-QID PRN 07/28/16 [History] Ascorbic Acid [Vitamin C] 500 mg PO DAILY 07/28/16 [History] Omeprazole 20 mg PO BID 07/28/16 [History] Cholecalciferol [Vitamin D3 (25 Mcg = 1000 Iu)] 5,000 unit PO DAILY 04/24/19 [History] Levothyroxine Sodium [Synthroid] 100 mcg PO DAILY 04/24/19 [History] Acetaminophen Tab [Tylenol] 650 mg PO Q6HR PRN tab 04/28/19 [Rx] Apixaban [Eliquis] 2.5 mg PO BID@0800,2000 tablet 04/28/19 [Rx] Aspirin 81 mg PO DAILY chew 04/28/19 [Rx] Docusate [Colace] 100 mg PO BID cap 04/28/19 [Rx] Furosemide [Lasix] 20 mg PO DAILY tab 04/28/19 [Rx] HYDROcodone/APAP 5-325MG [[place] 5-325] 1 tab PO TID PRN 14 Days #42 tab 04/28/19 [Rx] Losartan [Cozaar] 25 mg PO DAILY tab 04/28/19 [Rx] Follow up Appointment(s)/Referral(s): Angela Da Silva MD [Primary Care Provider] - 1-2 days Stewart Jackson MD [STAFF PHYSICIAN] - 1 Week Activity/Diet/Wound Care/Special Instructions: Activity as tolerated Diet Heart Healthy CBC and CMP 2 days Discharge Disposition: TRANSFER TO SNF/ECF
[2019-04-28 14:52] VITALS: BP 140/89
--- NOTE | 2019-04-28 15:28 | P.PN ---
Subjective Progress Note Date: 04/28/19 This is an 89-year-old female with history of hypothyroidism, hypertension, coronary artery disease, who presented to the hospital with symptoms of progressively worsening shortness of breath. Her EKG on presentation here showed atrial fibrillation with a slow ventricular rate and episodes of intermittent high degree AV block. She had been on Tenormin which was discontinued, and in spite of that her rate remains in the 40s today. It has been recommended by Dr. Aguilar that the patient undergo implantation of a permanent pacemaker. This will be performed tomorrow by Dr. Jackson. Blood pressure 132/58 this morning, heart rate 42, 98% on 2 of oxygen. 04/28/2019 Patient seen and examined this morning, underwent implantation of a permanent pacemaker yesterday and overall that she is feeling better. Hemodynamically she is stable. Chest x-ray was reviewed this afternoon and did not reveal any evidence of postprocedural pneumothorax. Objective - Vital Signs Vital signs: Vital Signs Temp 96.7 F L 04/28/19 08:00 Pulse 60 04/28/19 12:00 Resp 16 04/28/19 04:00 BP 140/89 04/28/19 12:00 Pulse Ox 98 04/28/19 12:00 Intake & Output 04/27/19 04/28/19 04/28/19 18:59 06:59 18:59 Intake Total 980 400 240 Output Total 450 400 100 Balance 530 0 140 Weight 73.7 kg 74 kg Intake: IV 100 Intake, IV Titration 400 400 Amount Sodium Chloride 0.9% 1, 400 000 ml @ 50 mls/hr IV . Q20H [facility] Rx#:[id number] Sodium Chloride 0.9% 1, 400 000 ml @ 50 mls/hr IV . Q20H [facility] Rx#:[id number] Oral 480 240 Output: Urine 450 400 100 Other: Voiding Method Bedside Commode Bedside Commode # Voids 3 2 # Bowel Movements 1 - Exam PHYSICAL EXAMINATION: GENERAL: 89-year-old female in no acute distress at the time of my examination HEENT: Head is atraumatic, normocephalic. Pupils equal, round. Sclera anicteric. Conjunctiva are clear. Mucous membranes of the mouth are moist. Neck is supple. There is no elevated jugular venous pressure. No carotid bruit is heard. HEART EXAMINATION: Heart S1 S2 irregularly irregular systolic ejection murmur is heard. CHEST EXAMINATION: Lungs are clear to auscultation and precussion. No chest wall tenderness is noted on palpation or with deep breathing. Pacemaker site dressing is dry and intact. ABDOMEN: Soft, nontender. Bowel sounds are heard. No organomegaly noted. EXTREMITIES: 2+ peripheral pulses with no evidence of peripheral edema and no calf tenderness noted. NEUROLOGIC patient is awake, alert and oriented 3 . - Labs CBC & Chem 7: 04/28/19 07:17 04/28/19 07:17 Labs: Abnormal Lab Results - Last 24 Hours (Table) 04/28/19 04/28/19 04/28/19 Range/Units 07:17 07:17 11:48 MCHC 30.6 L (31.0-37.0) g/dL BUN 29 H (7-17) mg/dL Creatinine 1.41 H (0.52-1.04) mg/dL Glucose 129 H (74-99) mg/dL POC Glucose (mg/dL) 112 H (75-99) mg/dL Albumin 3.4 L (3.5-5.0) g/dL Microbiology - Last 24 Hours (Table) 04/24/19 15:45 Blood Culture - Preliminary Blood No Growth after 72 hours Assessment and Plan Plan: Assessment and plan #1 persistent atrial fibrillation, slow ventricular response, status post implantation of permanent pacemaker #2 shortness of breath, likely secondary to bradycardia arrhythmia #3 known history of coronary artery disease with prior PCI #4 hypertension #5 hyperlipidemia #6 non-[place] troponin elevation, likely secondary to renal insufficiency Plan From cardiology's perspective, patient may be able to be discharged today, we'll make her a follow-up appointment in the office and with the device clinic in one week. DNP note has been reviewed, I agree with a documented findings and plan of care. Patient was seen and examined.
[2019-04-29] MEDS ORDERED: APIXABAN 2.5 MG TABLET PO SCH (08:00)
== END 2019-04-28 17:14 | DRG 242 ==
LOC: EC 14:40 → 3SCARD 17:37 → OBSVTOIN 04-25 15:34
PROVIDERS: ADMIT Internal Medicine; ATTEND Internal Medicine
PROC: 0JH604Z Insertion of Pacemaker, Single Chamber into Chest Subcutaneous Tissue and Fascia, Open Approach (ICD-10-PCS; principal; 2019-04-25)
PROC: 02HK3JZ Insertion of Pacemaker Lead into Right Ventricle, Percutaneous Approach (ICD-10-PCS; 2019-04-27)
PROC: B51P1ZZ Fluoroscopy of Bilateral Upper Extremity Veins using Low Osmolar Contrast (ICD-10-PCS; 2019-04-27)
DX: I49.5 Sick sinus syndrome (principal); I50.31 Acute diastolic (congestive) heart failure; I48.1 Persistent atrial fibrillation; I48.92 Unspecified atrial flutter; N17.9 Acute kidney failure, unspecified; I11.0 Hypertensive heart disease with heart failure; J44.9 Chronic obstructive pulmonary disease, unspecified; I35.0 Nonrheumatic aortic (valve) stenosis; E03.9 Hypothyroidism, unspecified; E78.5 Hyperlipidemia, unspecified; I25.10 Atherosclerotic heart disease of native coronary artery without angina pectoris; I25.2 Old myocardial infarction; K21.9 Gastro-esophageal reflux disease without esophagitis; K59.00 Constipation, unspecified; M81.0 Age-related osteoporosis without current pathological fracture; R32 Unspecified urinary incontinence; K80.20 Calculus of gallbladder without cholecystitis without obstruction; M19.90 Unspecified osteoarthritis, unspecified site; R77.9 Abnormality of plasma protein, unspecified; Z79.890 Hormone replacement therapy; Z79.899 Other long term (current) drug therapy; Z88.1 Allergy status to other antibiotic agents; Z88.8 Allergy status to other drugs, medicaments and biological substances; Z91.048 Other nonmedicinal substance allergy status; Z87.891 Personal history of nicotine dependence; Z90.710 Acquired absence of both cervix and uterus; Z96.652 Presence of left artificial knee joint; Z98.61 Coronary angioplasty status; Z90.49 Acquired absence of other specified parts of digestive tract; Z98.42 Cataract extraction status, left eye; Z98.41 Cataract extraction status, right eye; Z96.1 Presence of intraocular lens; Z80.9 Family history of malignant neoplasm, unspecified; Z82.49 Family history of ischemic heart disease and other diseases of the circulatory system
CPT/HCPCS: 33207; 36415; 71046; 80048; 80053; 80061; 83735; 83880; 84443; 84484; 85025; 85027; 85379; 85610; 85730; 87040; 93005; 93306; 96365; 96366; 96375; 96376; 99285

== ENCOUNTER 2019-07-09 09:06 | Inpatient (IN) | payer MEDICARE ==
[2019-07-09] MEDS ORDERED: NITROGLYCERIN OINT 1 INCH/GM PACKET TOPICAL STA (09:09)
[2019-07-09] MEDS ORDERED: SODIUM CHLORIDE 0.9% 1,000 ML IV STA (09:09)
[2019-07-09] MEDS ORDERED: IPRATROPIUM-ALBUTEROL 3 ML NEB INHALATION STA (09:10)
[2019-07-09 09:32] LABS: Basophils % (A) 0 %; Eosinophils # (A) 0.2 k/uL (0-0.7); Eosinophils % (A) 2 %; HCT 41.3 % (34.0-46.0); HGB 12.9 gm/dL (11.4-16.0); Lymphocytes # (A) 1.3 k/uL (1.0-4.8); Lymphocytes % (A) 19 %; MCH 30.2 pg (25.0-35.0); MCHC 31.3 g/dL (31.0-37.0); MCV 96.6 fL (80.0-100.0); Mean Platelet Volume 7.5; Monocytes # (A) 0.3 k/uL (0-1.0); Monocytes % (A) 4 %; Neutrophils % (A) 73 %; Platelet Count 248 k/uL (150-450); RBC 4.28 m/uL (3.80-5.40); RDW 13.9 % (11.5-15.5); WBC 6.9 k/uL (3.8-10.6)
[2019-07-09 09:41] LABS: Partial Thromboplastin Time 24.9 sec (22.0-30.0)
--- NOTE | 2019-07-09 10:07 | XR ---
EXAMINATION TYPE: XR chest 2V DATE OF EXAM: 07/09/2019 COMPARISON: Chest x-ray April 28, 2019. HISTORY: Chest pain and shortness of breath. TECHNIQUE: Frontal and lateral views of the chest are obtained. FINDINGS: There is chronic parenchymal change without suspicious new focal air space opacity, pleura l effusion, or pneumothorax seen. The cardiac silhouette size remains enlarged with single lead pace maker and atherosclerotic aorta. Retrocardiac opacity suspicious for hiatal hernia is redemonstrated . The osseous structures are intact. IMPRESSION: Chronic changes and cardiomegaly without new acute pulmonary process.
[2019-07-09] MEDS ORDERED: HYDROmorphone 0.5 MG/0.5 ML SYRINGE IVP STA (10:17)
[2019-07-09 10:23] LABS: Calcium 9.5 mg/dL (8.4-10.2); Potassium 4.2 mmol/L (3.5-5.1); Total Bilirubin 0.4 mg/dL (0.2-1.3); Total Protein 7.2 g/dL (6.3-8.2)
--- NOTE | 2019-07-09 12:54 | ED ---
Chest Pain HPI - General Chief Complaint: Chest Pain Stated Complaint: CHEST PAIN Time Seen by Provider: 07/09/19 09:06 Source: patient, EMS, RN notes reviewed Mode of arrival: EMS Limitations: physical limitation - History of Present Illness Initial Comments: This 89-year-old female who presents by EMS with complaints of acid test in this way. She did take 2 of her own nitroglycerin with some relief he was still having some intermittent chest pain she states is burning. She related to eating some pizza last night. No overt shortness breath no fevers chills no nausea vomiting at this time. He states the pain was about 6-7/10. She did get a new pacemaker put in about 2 months ago. No other current modifying factors MD Complaint: chest pain - Related Data Home Medications Medication Instructions Recorded Confirmed Albuterol Sulfate [Proair Hfa] 2 puff INHALATION RT-QID PRN 07/28/16 07/09/19 Ascorbic Acid [Vitamin C] 500 mg PO DAILY 07/28/16 07/09/19 Omeprazole 20 mg PO BID 07/28/16 07/09/19 Cholecalciferol [Vitamin D3 (25 5,000 unit PO DAILY 04/24/19 07/09/19 Mcg = 1000 Iu)] Levothyroxine Sodium [Synthroid] 100 mcg PO DAILY 04/24/19 07/09/19 Previous Rx's Medication Instructions Recorded Apixaban [Eliquis] 2.5 mg PO BID@0800,2000 tablet 04/28/19 Aspirin 81 mg PO DAILY chew 04/28/19 Docusate [Colace] 100 mg PO BID cap 04/28/19 Furosemide [Lasix] 20 mg PO DAILY tab 04/28/19 HYDROcodone/APAP 5-325MG [[place] 1 tab PO TID PRN 14 Days #42 tab 04/28/19 5-325] Losartan [Cozaar] 25 mg PO DAILY tab 04/28/19 Allergies Allergy/AdvReac Type Severity Reaction Status Date / Time Antihistamines - Alkylamine Allergy Unknown Verified 07/09/19 09:46 ascorbic acid Allergy Unknown Verified 07/09/19 09:46 [From PreserVision AREDS-2] clopidogrel [From Plavix] Allergy Unknown Verified 07/09/19 09:46 copper Allergy Unknown Verified 07/09/19 09:46 [From PreserVision AREDS-2] lavender (Lavandula Allergy Unknown Verified 07/09/19 09:46 angustifolia) lutein Allergy Unknown Verified 07/09/19 09:46 [From PreserVision AREDS-2] quinine Allergy Unknown Verified 07/09/19 09:46 vitamin E acetate (dl-alpha Allergy Unknown Verified 07/09/19 09:46 tocopheryl) [From PreserVision AREDS-2] zeaxanthin Allergy Unknown Verified 07/09/19 09:46 [From PreserVision AREDS-2] zinc oxide Allergy Unknown Verified 07/09/19 09:46 [From PreserVision AREDS-2] cephalexin [From Keflex] AdvReac Intermediate Diarrhea Verified 07/09/19 09:46 Review of Systems ROS Statement: Those systems with pertinent positive or pertinent negative responses have been documented in the HPI. ROS Other: All systems not noted in ROS Statement are negative. EKG Findings - EKG Results: EKG: interpreted by AMINTA (Sinus tachycardia rate 112 [place] interval 162 QRS 144 QT since QTC 376/513 left exodeviation left bundle-branch block) Past Medical History Past Medical History: Atrial Fibrillation, COPD, GERD/Reflux, Hypertension, Myocardial Infarction (DE), Osteoarthritis (OA), Thyroid Disorder Additional Past Medical History / Comment(s): hx AORTIC STENOSIS, OSTEOPOROSIS, hx ANEMIA, told years ago she had "silent heart attack", constipation, gall stones, vaginal itching, urinary leakage,. Pt states she was told when she had an DE, she had a temporary irregular heart rate but never followed up on it 04/24/19 Last Myocardial Infarction Date:: unknown History of Any Multi-Drug Resistant Organisms: None Reported Past Surgical History: Appendectomy, Section, Ear Surgery, Heart Catheterization With Stent, Hysterectomy, Joint Replacement, Orthopedic Surgery, Pacemaker Additional Past Surgical History / Comment(s): ANGIOPLASTY, RIGHT WRIST ORIF, LEFT KNEE replacement, malissa CATARACTS Past Anesthesia/Blood Transfusion Reactions: No Reported Reaction Date of Last Stent Placement:: approx 2007 Past Psychological History: No Psychological Hx Reported Smoking Status: Former smoker Past Alcohol Use History: None Reported, Rare Past Drug Use History: None Reported - Past Family History Daughter(s) Family Medical History: Cancer Brother(s) Family Medical History: Deep Vein Thrombosis (DVT) General Exam - General Exam Comments Initial Comments: This is a well-developed well-nourished awake alert oriented 3 female Limitations: physical limitation General appearance: alert, in no apparent distress Head exam: Present: atraumatic, normocephalic, normal inspection Eye exam: Present: normal appearance, PERRL, EOMI. Absent: scleral icterus, conjunctival injection, periorbital swelling ENT exam: Present: normal exam, mucous membranes moist Neck exam: Present: normal inspection. Absent: tenderness, meningismus, lymphadenopathy Respiratory exam: Present: normal lung sounds bilaterally. Absent: respiratory distress, wheezes, rales, rhonchi, stridor Cardiovascular Exam: Present: regular rate, normal rhythm, normal heart sounds. Absent: systolic murmur, diastolic murmur, rubs, gallop, clicks GI/Abdominal exam: Present: soft, normal bowel sounds. Absent: distended, tenderness, guarding, rebound, rigid Extremities exam: Present: normal inspection, full ROM, normal capillary refill. Absent: tenderness, pedal edema, joint swelling, calf tenderness Back exam: Present: normal inspection Neurological exam: Present: alert, oriented X3, CN II-XII intact Psychiatric exam: Present: normal affect, normal mood Skin exam: Present: warm, dry, intact, normal color. Absent: rash Course Vital Signs 07/09/19 07/09/19 07/09/19 09:11 09:31 09:43 Temperature 97.6 F Pulse Rate 100 89 93 Pulse Rate [ Capacity Analyst ] Respiratory 17 Rate Blood Pressure 179/95 O2 Sat by Pulse 96 Oximetry 07/09/19 07/09/19 07/09/19 10:00 10:30 10:50 Temperature Pulse Rate 105 H 112 H Pulse Rate [ 96 Capacity Analyst ] Respiratory 18 17 Rate Blood Pressure 167/86 175/98 O2 Sat by Pulse 93 L 98 Oximetry 07/09/19 07/09/19 07/09/19 11:00 11:30 12:00 Temperature Pulse Rate 82 84 82 Pulse Rate [ Capacity Analyst ] Respiratory 18 20 17 Rate Blood Pressure 176/98 139/61 118/77 O2 Sat by Pulse 99 98 97 Oximetry 07/09/19 07/09/19 07/09/19 12:08 12:30 13:00 Temperature Pulse Rate 82 93 93 Pulse Rate [ Capacity Analyst ] Respiratory 18 17 18 Rate Blood Pressure 135/78 135/78 100/76 O2 Sat by Pulse 98 97 97 Oximetry 07/09/19 07/09/19 07/09/19 13:30 14:00 14:30 Temperature Pulse Rate 89 90 80 Pulse Rate [ Capacity Analyst ] Respiratory 17 19 18 Rate Blood Pressure 109/74 129/72 140/82 O2 Sat by Pulse 98 96 99 Oximetry 07/09/19 14:39 Temperature Pulse Rate Pulse Rate [ Capacity Analyst ] Respiratory 17 Rate Blood Pressure O2 Sat by Pulse Oximetry - Reevaluation(s) Reevaluation #1: 07/09/19 15:05 Evaluation patient revealed that she was pain-free Reevaluation #2: 07/09/19 15:08 Initial EKG showed a sinus rhythm a 98. 160 QRS 148 QT since QTC 410/423 the left exodeviation left bundle-branch block Chest Pain MDM - MDM Imaging was reviewed no definite acute findings. Patient did have elevated troponin 0.31 to did discuss case with Dr. lisseth fernando as well as with Dr. Douglas who came to the emergency department see the patient. Patient will be admitted and treated inpatient. Dr. Douglas has made some orders. Critical Care Time Critical Care Time: Yes Critical Care Time: 39 minutes of critical care time of 38 minutes which includes initial presentation with history physical labs x-rays discussed with paramedics. Review of the patient's findings with patient family and several occasions discussion with the main physician discussed with the consult admission orders and documentation of the above Disposition Clinical Impression: Non-STEMI (non-ST elevated myocardial infarction), CHF (congestive heart failure) Disposition: ADMITTED IP TO THIS HOSP Condition: Fair Referrals: Angela Da Silva MD [Primary Care Provider] - 1-2 days
[2019-07-09] MEDS ORDERED: FUROSEMIDE 10 MG/ML 2 ML VIAL IV ONE (13:34)
[2019-07-09] MEDS: METOPROLOL TARTRATE 5 MG/5 ML VIAL IVP SCH ×2 (14:08→14:29)
[2019-07-09] MEDS ORDERED: ALBUTEROL NEBULIZED 2.5 MG/3 ML INHALATION PRN (14:34)
[2019-07-09] MEDS ORDERED: NITROGLYCERIN SL TABS 0.4 MG TAB SUBLINGUAL PRN (15:09)
[2019-07-09] MEDS ORDERED: SODIUM CHLORIDE 0.9% 1,000 ML IV SCH (15:15)
--- NOTE | 2019-07-09 15:22 | P.HPIM ---
History of Present Illness H&P Date: 07/09/19 This is an 89-year-old female, patient of Dr. Da Silva. She presents today by EMS after worsening chest pain x1 day. Patient noted chest pain, described as burning across her chest and shoulders after eating a piece of pizza, she attributed this to gas initially. When she woke this morning the pain was increasingly worse, she felt short of breath, with pain traveling down her left arm. At this point she called EMS. She was given nitro with some relief. Once in ER, patient was given IV Lopressor and IV Lasix for EKG changes and will remain on Eliquis, per cardiology. Initial troponin 0.312. Patient has past medical history of atrial fibrillation, on Eliquis. Patient underwent pacemaker placement in March 2019 for atrial arrhythmias and bradycardia. 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 Patient is currently alert and oriented 3, complaining of minor burning in her chest, denies shortness of breath, denies fever, difficulty urinating, though does have urinary urgency. Patient reports pain with palpation in her right posterior calf, states it feels like there is a rock in her leg. Site is non-erythematous or edematous. Review of Systems Visit for HPI. Otherwise unremarkable Past Medical History Past Medical History: Atrial Fibrillation, COPD, GERD/Reflux, Hypertension, Myocardial Infarction (ME), Osteoarthritis (OA), Thyroid Disorder Additional Past Medical History / Comment(s): hx AORTIC STENOSIS, OSTEOPOROSIS, hx ANEMIA, told years ago she had "silent heart attack", constipation, gallstones, vaginal itching, urinary leakage,. Pt states she was told when she had an ME, she had a temporary irregular heart rate but never followed up on it 04/24/19 Last Myocardial Infarction Date:: unknown History of Any Multi-Drug Resistant Organisms: None Reported Past Surgical History: Appendectomy, Section, Ear Surgery, Heart Catheterization With Stent, Hysterectomy, Joint Replacement, Orthopedic Surgery, Pacemaker Additional Past Surgical History / Comment(s): ANGIOPLASTY, RIGHT WRIST ORIF, LEFT KNEE replacement, malissa CATARACTS Past Anesthesia/Blood Transfusion Reactions: No Reported Reaction Date of Last Stent Placement:: approx 2007 Past Psychological History: No Psychological Hx Reported Smoking Status: Former smoker Past Alcohol Use History: None Reported, Rare Past Drug Use History: None Reported - Past Family History Daughter(s) Family Medical History: Cancer Brother(s) Family Medical History: Deep Vein Thrombosis (DVT) Medications and Allergies Home Medications Medication Instructions Recorded Confirmed Type Albuterol Sulfate [Proair Hfa] 2 puff INHALATION RT-QID PRN 07/28/16 07/09/19 History Ascorbic Acid [Vitamin C] 500 mg PO DAILY 07/28/16 07/09/19 History Omeprazole 20 mg PO BID 07/28/16 07/09/19 History Cholecalciferol [Vitamin D3 (25 5,000 unit PO DAILY 04/24/19 07/09/19 History Mcg = 1000 Iu)] Levothyroxine Sodium [Synthroid] 100 mcg PO DAILY 04/24/19 07/09/19 History Apixaban [Eliquis] 2.5 mg PO BID@0800,2000 tablet 04/28/19 07/09/19 Rx Aspirin 81 mg PO DAILY chew 04/28/19 07/09/19 Rx Docusate [Colace] 100 mg PO BID cap 04/28/19 07/09/19 Rx Furosemide [Lasix] 20 mg PO DAILY tab 04/28/19 07/09/19 Rx HYDROcodone/APAP 5-325MG [[place] 1 tab PO TID PRN 14 Days #42 tab 04/28/19 07/09/19 Rx 5-325] Losartan [Cozaar] 25 mg PO DAILY tab 04/28/19 07/09/19 Rx Allergies Allergy/AdvReac Type Severity Reaction Status Date / Time Antihistamines - Alkylamine Allergy Unknown Verified 07/09/19 09:46 ascorbic acid Allergy Unknown Verified 07/09/19 09:46 [From PreserVision AREDS-2] clopidogrel [From Plavix] Allergy Unknown Verified 07/09/19 09:46 copper Allergy Unknown Verified 07/09/19 09:46 [From PreserVision AREDS-2] lavender (Lavandula Allergy Unknown Verified 07/09/19 09:46 angustifolia) lutein Allergy Unknown Verified 07/09/19 09:46 [From PreserVision AREDS-2] quinine Allergy Unknown Verified 07/09/19 09:46 vitamin E acetate (dl-alpha Allergy Unknown Verified 07/09/19 09:46 tocopheryl) [From PreserVision AREDS-2] zeaxanthin Allergy Unknown Verified 07/09/19 09:46 [From PreserVision AREDS-2] zinc oxide Allergy Unknown Verified 07/09/19 09:46 [From PreserVision AREDS-2] cephalexin [From Keflex] AdvReac Intermediate Diarrhea Verified 07/09/19 09:46 Physical Exam Vitals: Vital Signs Temp Pulse Pulse Resp BP Pulse Ox 07/09/19 12:08 82 18 135/78 98 07/09/19 10:50 96 07/09/19 10:30 112 H 17 175/98 98 07/09/19 10:00 105 H 18 167/86 93 L 07/09/19 09:43 93 07/09/19 09:31 89 07/09/19 09:11 97.6 F 100 17 179/95 96 Intake and Output 07/08/19 07/09/19 07/09/19 22:59 06:59 14:59 Other: Weight 74.933 kg Head normocephalic Neck supple Lungs diminished to auscultation bilaterally no wheezing or crackles Heart regular rate and rhythm S1-S2, no rub or gallop, murmur present. Abdomen is soft nontender nondistended positive bowel sounds no hepatosplenomegaly Extremities no edema, right calf tender to touch, nonerythematous or edematous. Neuro alert and orientated to 3 Results CBC & Chem 7: 07/09/19 09:18 07/09/19 09:18 Labs: Abnormal Lab Results - Last 24 Hours (Table) 07/09/19 07/09/19 Range/Units 09:18 09:18 Sodium 136 L (137-145) mmol/L Carbon Dioxide 21 L (22-30) mmol/L BUN 42 H (7-17) mg/dL Creatinine 1.18 H (0.52-1.04) mg/dL Glucose 131 H (74-99) mg/dL Troponin I 0.312 H* (0.000-0.034) ng/mL Assessment and Plan Assessment: 1. Chest pain. Cardiology consulted and saw patient in the ER . Nitro patch in place. IV Lopressor and IV Lasix given for EKG changes per cardiology. Patient will remain on eliquis. Initial troponin 0.312. BNP 3640. Echo completed in March 2019 showing EF 60-65% and moderate pulmonary hypertension. Awaiting further cardiac workup recommendations. 2. History of atrial arrhythmias. Pacemaker placed in March 2019. Ventricular paced at 60-130. 3. Hypertension essential taking Cozaar. 4. History of ME. Patient did not have typical symptoms, this was described as a silent ME in which she underwent a cardiac stents in approximately 2007. 5. History of GERD with reflux on omeprazole at home 6. Hypothyroidism on Synthroid at home. TSH ordered 7. Osteoarthritis of the left and right wrist taking [place]. 8. Right lower extremity calf pain will order venous Doppler DVT prophylaxis eliquis. GI prophylaxis Pepcid
[2019-07-09] MEDS ORDERED: ONDANSETRON 4 MG/2 ML VIAL IVP PRN (15:23)
[2019-07-09] MEDS ORDERED: ACETAMINOPHEN TAB 325 MG TAB PO PRN (15:23)
[2019-07-09] MEDS: HYDROcodone/APAP 5-325MG 1 EACH TAB PO PRN (15:45)
[2019-07-09] MEDS ORDERED: APIXABAN 2.5 MG TABLET PO SCH (16:00)
[2019-07-09] MEDS ORDERED: FUROSEMIDE 10 MG/ML 2 ML VIAL IV STA (16:44)
[2019-07-09] MEDS ORDERED: METOPROLOL TARTRATE 5 MG/5 ML VIAL IVP ONE (16:45)
[2019-07-09] MEDS ORDERED: SALINE 1 500ML.BAG with HEPARIN SODIUM,PORCINE/NS/PF 1,000 UNIT IV ONE (16:49)
[2019-07-09] MEDS ORDERED: HEPARIN SOD,PORK IN 0.45% NACL 25,000 UNIT in 0.45% NACL 1 250ML.BAG IV SCH (17:00)
[2019-07-09] MEDS: PANTOPRAZOLE 40 MG TABLET PO SCH (17:05)
--- NOTE | 2019-07-09 19:34 | CONS ---
CONSULTATION DATE OF SERVICE: 07/09/2019 This is an 89-year-old lady with a known history of CAD, chronic persistent atrial fibrillation with sick sinus syndrome and underlying permanent pacemaker that was placed in March of 2019. This lady came into the hospital with complaints of discomfort in the chest and upper extremities suggestive of angina, has a mild troponin elevation. EKG revealed what seems to be a bundle branch block with some paced beats and underlying atrial fibrillation. EKG, however, is inconclusive. She is comfortable resting, has no further chest pain. Heart rate is somewhat faster. At the time of my evaluation she is resting comfortably without symptoms. PAST MEDICAL HISTORY: 1. Atrial fibrillation with tachy-donna phenomenon, status post single-chamber pacemaker placed in March. 2. CAD with prior angioplasty; details unavailable. 3. Hypertension. 4. Hyperlipidemia. 5. Sick sinus syndrome, status post recent permanent pacemaker. MEDICATIONS: Medications at home include: 1. Aspirin. 2. Lasix. 3. Hydralazine. 4. Lisinopril. 5. Metoprolol tartrate. 6. Eliquis 2.5 mg b.i.d. ALLERGIES: She is ALLERGIC to MORPHINE. PHYSICAL EXAMINATION: Blood pressure is 120/80. Pulse rate is about 100 per minute, irregular. HEENT unremarkable. Fundus was not examined by me. NECK: Supple. There is JVD of 1 cm. No carotid bruit. Heart exam reveals S1, S2 heard normally with ejection systolic murmur at the base of the heart. Second heart sound is preserved. Lungs reveal slight diminished air entry. Abdomen is soft, nontender. Lower extremities reveal diminished pulses. Central nervous system is normal. LAB DATA: Lab data revealed mild elevation of troponin at 0.3. IMPRESSION: 1. Acute ischemic syndrome with probable [id number] myocardial infarction with her relief of chest pain, and patient is hemodynamically stable. 2. Atrial fibrillation with sick sinus syndrome with underlying permanent pacemaker. 3. Hypertension. 4. Coronary artery disease with prior angioplasty; details unavailable. 5. Probably patient has some aortic stenosis, but second heart sound is preserved, probably moderate. RECOMMENDATIONS: I am recommending intravenous Lopressor followed by oral beta blockers. Continue Eliquis. We will try to manage her acute ischemic syndrome conservatively. Echocardiogram from March revealed preserved systolic function with pulmonary hypertension and moderate aortic stenosis. There is also some calcific mitral stenosis of a mild degree noted. We will work with medical therapy and see how she does. If she has breakthrough angina, we will consider cardiac cath. I discussed my thoughts in detail with the patient and daughter. Thank you very much for the consult. GYPSY / MANNY: [id number] /
[2019-07-09] MEDS: DOCUSATE 100 MG CAP PO SCH (19:59)
[2019-07-09] MEDS: METOPROLOL TARTRATE 50 MG TAB PO SCH (19:59)
[2019-07-09] MEDS ORDERED: METOPROLOL TARTRATE 25 MG TAB PO SCH (21:00)
--- NOTE | 2019-07-09 22:50 | US ---
EXAMINATION TYPE: US venous doppler duplex LE RT DATE OF EXAM: 07/09/2019 10:18 PM COMPARISON: NONE CLINICAL HISTORY: RLE pain. Right lower extremity pain. No HX of DVT. Patient on Eliquis and aspirin. SIDE PERFORMED: Right TECHNIQUE: The lower extremity deep venous system is examined utilizing real time linear array sonog walter with graded compression, doppler sonography and color-flow sonography. VESSELS IMAGED: External Iliac Vein (EIV) Common Femoral Vein Deep Femoral Vein Greater Saphenous Vein * Femoral Vein Popliteal Vein Small Saphenous Vein * Proximal Calf Veins (* superficial vessels) Right Leg: No evidence of DVT in veins imaged from prox calf veins to EIV. Limited evaluation of dis jane femoral vein due to swelling and patient's inability to tolerate compression of this segment. IMPRESSION: No evidence of deep venous thrombosis in the right leg.
[2019-07-10 05:52] LABS: Basophils % (A) 0 %; Eosinophils # (A) 0.2 k/uL (0-0.7); Eosinophils % (A) 3 %; HCT 38.3 % (34.0-46.0); HGB 12.4 gm/dL (11.4-16.0); Lymphocytes # (A) 1.7 k/uL (1.0-4.8); Lymphocytes % (A) 25 %; MCH 31.2 pg (25.0-35.0); MCHC 32.5 g/dL (31.0-37.0); MCV 96.1 fL (80.0-100.0); Mean Platelet Volume 6.8; Monocytes # (A) 0.4 k/uL (0-1.0); Monocytes % (A) 6 %; Neutrophils # (A) 4.5 k/uL (1.3-7.7); Neutrophils % (A) 64 %; Platelet Count 245 k/uL (150-450); RBC 3.98 m/uL (3.80-5.40); RDW 13.5 % (11.5-15.5)
[2019-07-10 06:13] LABS: Albumin 3.5 g/dL (3.5-5.0); Calcium 9.2 mg/dL (8.4-10.2); Potassium 4.2 mmol/L (3.5-5.1); Total Bilirubin 0.6 mg/dL (0.2-1.3); Total Protein 6.5 g/dL (6.3-8.2)
[2019-07-10] MEDS: DOCUSATE 100 MG CAP PO SCH ×2 (06:18→20:33)
[2019-07-10] MEDS: LEVOTHYROXINE 100 MCG TAB PO SCH (06:34)
[2019-07-10] MEDS: ASCORBIC ACID 500 MG TAB PO SCH (06:34)
[2019-07-10] MEDS: METOPROLOL TARTRATE 50 MG TAB PO SCH ×3 (06:34→20:33)
[2019-07-10] MEDS: CHOLECALCIFEROL 1,000 UNIT TAB PO SCH (06:34)
[2019-07-10] MEDS: PANTOPRAZOLE 40 MG TABLET PO SCH (06:34)
[2019-07-10] MEDS: FUROSEMIDE 20 MG TAB PO SCH (08:30)
[2019-07-10] MEDS ORDERED: ASPIRIN 325 MG TAB PO SCH (09:00)
[2019-07-10] MEDS ORDERED: ASPIRIN 81 MG PO SCH (09:00)
[2019-07-10] MEDS ORDERED: LOSARTAN 25 MG TAB PO SCH (09:00)
[2019-07-10] MEDS ORDERED: IV FLUID CONTINUATION 300 ML IV ONE (09:50)
[2019-07-10] MEDS ORDERED: LIDOCAINE 1% INJ 10MG/ML (20 ML MDV) ONE (10:01)
[2019-07-10] MEDS ORDERED: fentaNYL (PF) 50 MCG/ML 2 ML AMP ONE (10:01)
[2019-07-10] MEDS ORDERED: fentaNYL (PF) 50 MCG/ML 2 ML AMP IV ONE (10:17)
[2019-07-10] MEDS ORDERED: LIDOCAINE 1% INJ 10MG/ML (20 ML MDV) SQ ONE (10:20)
[2019-07-10] MEDS ORDERED: BIVALIRUDIN 250 MG in SODIUM CHLORIDE 0.9% 50 ML IV ONE (10:50)
[2019-07-10] MEDS ORDERED: BIVALIRUDIN BOLUS 250 MG/50 ML IV ONE (10:50)
[2019-07-10] MEDS ORDERED: HYDROmorphone 1 MG/ML 1 ML SYRINGE ONE (11:03)
[2019-07-10] MEDS ORDERED: HYDROmorphone 1 MG/ML 1 ML SYRINGE IVP ONE (11:04)
--- NOTE | 2019-07-10 11:05 | CC ---
CARDIAC CATHETERIZATION REPORT INDICATION: [id number] elevation myocardial infarction. PROCEDURE NOTE: After obtaining informed consent, left heart catheterization and coronary angiogram are performed via the right femoral artery using standard Adela catheters. The patient tolerated the procedure well without any obvious immediate complications. The patient received moderate conscious sedation and total sedation time was 17 minutes. FINDINGS: 1. HEMODYNAMICS: Left ventricular end-diastolic pressure is 12 mm. There is a gradient of 15 to 20 mm across the valve. 2. ANGIOGRAPHIC DATA: Left Main Coronary Artery: Left main coronary artery appears calcified but is free of significant stenosis. Divides into left anterior descending coronary artery and circumflex coronary artery. LAD shows a 95% stenosis in the proximal part. Circumflex coronary artery has a long segment of stenosis. Proximally, there is a 95% stenosis and distally 70% stenosis. Right coronary artery is sub selectively engaged. There is a 40% to 50% stenosis in the mid RCA. CONCLUSION: Severe 2 vessel coronary artery disease as described above. PLAN: Angiographic data was reviewed by Dr. Clementine Douglas, the on-call manager baby, and he will attempt angioplasty of LAD and circumflex coronary artery. MMODL / IJN: [id number] /
--- NOTE | 2019-07-10 11:08 | LTR ---
July 10, 2019 Re: Florencia Elam Dear Dr. Da Silva: I performed cardiac catheterization on Florencia Elam. A detailed catheterization note is enclosed for your records. In brief, the cardiac catheterization reveals severe stenosis involving LAD and circumflex coronary artery and patient will undergo angioplasty with stent placement of the same. Thank you for giving us the privilege to participate in the care of this pleasant lady. Sincerely, MD GYPSY Narayanan / MANNY: [id number] /
[2019-07-10] MEDS ORDERED: IOPAMIDOL-370 125ML BTL INJ ONE ×3 (11:10→11:42)
--- NOTE | 2019-07-10 11:22 | P.PN ---
Subjective Progress Note Date: 07/10/19 This is an 89-year-old female, patient of Dr. Da Silva. She presents today by EMS after worsening chest pain x1 day. Patient noted chest pain, described as burning across her chest and shoulders after eating a piece of pizza, she attributed this to gas initially. When she woke this morning the pain was i ncreasingly worse, she felt short of breath, with pain traveling down her left arm. At this point she called EMS. She was given nitro with some relief. Once in ER, patient was given IV Lopressor and IV Lasix for EKG changes and will remain on Eliquis, per cardiology. Initial troponin 0.312. Patient has past medical history of atrial fibrillation, on Eliquis. Patient underwent pacemaker placement in March 2019 for atrial arrhythmias and bradycardia. 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 Patient is currently alert and oriented 3, complaining of minor burning in her chest, d enies shortness of breath, denies fever, difficulty urinating, though does have urinary urgency. Patient reports pain with palpation in her right posterior calf, states it feels like there is a rock in her leg. Site is non-erythematous or edematous. On 07/10/2019 patient's alert and oriented 3. Troponins increasing to 9.370 and 12.8 last night. Patient was started on heparin drip per cardiology. Plans for cardiac catheterization today per cardiology. She has remained chest pain- free. Patient is resting comfortably in bed. Patient does complain of occasional shortness of breath. Patient denies nausea vomiting or diarrhea. Patient denies any urinary burning or frequency Objective - Vital Signs Vital signs: Vital Signs Temp 97.8 F 07/10/19 07:57 Pulse 60 07/10/19 07:57 Resp 18 07/10/19 07:57 BP 110/58 07/10/19 07:57 Pulse Ox 97 07/10/19 07:57 Intake & Output 07/09/19 07/10/19 07/10/19 18:59 06:59 18:59 Output Total 1700 300 Balance -1700 -300 Weight 74.933 kg 72.6 kg Output: Urine 1700 300 Other: Voiding Method Bedpan # Voids 2 - Exam Head normocephalic Neck supple Lungs diminished to auscultation bilaterally no wheezing or crackles Heart regular rate and rhythm S1-S2, no rub or gallop, murmur present. Abdomen is soft nontender nondistended positive bowel sounds no hepatosplenomegaly Extremities no edema, right calf tender to touch, nonerythematous or edematous. Neuro alert and orientated to 3 - Labs CBC & Chem 7: 07/10/19 05:40 07/10/19 05:40 Labs: Abnormal Lab Results - Last 24 Hours (Table) 07/09/19 07/09/19 07/09/19 Range/Units 09:15 15:24 20:58 Sodium (137-145) mmol/L BUN (7-17) mg/dL Creatinine (0.52-1.04) mg/dL Glucose (74-99) mg/dL AST (14-36) U/L Troponin I 9.370 H* 12.800 H* (0.000-0.034) ng/mL Cholesterol (<200) mg/dL LDL Cholesterol, Calc (0-99) mg/dL TSH 0.408 L (0.465-4.680) mIU/L 07/10/19 07/10/19 Range/Units 05:40 05:40 Sodium 136 L (137-145) mmol/L BUN 39 H (7-17) mg/dL Creatinine 1.13 H (0.52-1.04) mg/dL Glucose 109 H (74-99) mg/dL AST 47 H (14-36) U/L Troponin I 9.540 H* (0.000-0.034) ng/mL Cholesterol 206 H (<200) mg/dL LDL Cholesterol, Calc 130 H (0-99) mg/dL TSH (0.465-4.680) mIU/L Assessment and Plan Assessment: 1. Chest pain likely related to non-ST elevated myocardial infarction. Cardiology consulted and saw patient in the ER . Nitro patch in place. IV Lopressor and IV Lasix given for EKG changes per cardiology. Patient will remain on eliquis. Initial troponin 0.312. BNP 3640. Echo completed in March 2019 showing EF 60-65% and moderate pulmonary hypertension. Troponins increasing to 9.370, 12.8 and 9.54. Patient was started on heparin drip was negative per cardiology. Plans for cardiac catheterization today 2. History of atrial arrhythmias. Pacemaker placed in March 2019. Ventricular paced at 60-130. 3. Hypertension essential taking Cozaar. 4. History of ID. Patient did not have typical symptoms, this was described as a silent ID in which she underwent a cardiac stents in approximately 2007. 5. History of GERD with reflux on omeprazole at home 6. Hypothyroidism on Synthroid at home. TSH ordered 7. 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 8. Right lower extremity calf pain will order venous Doppler. Doppler completed showing no evidence of deep vein thrombosis in the right leg 9. Chronic kidney disease stage III. Patient's baseline creatinine appears to be 1.1-1.4. Current creatinine 1.13 DVT prophylaxis heparin drip. GI prophylaxis Pepcid I performed an examination of the patient and discussed their management with the Nurse Practitioner. I have reviewed the Nurse Practitioner's notes and agree with the documented findings and plan of care
[2019-07-10] MEDS ORDERED: CLOPIDOGREL 75 MG TAB ONE (11:37)
[2019-07-10] MEDS ORDERED: CLOPIDOGREL 75 MG TAB PO ONE (11:40)
[2019-07-10] MEDS ORDERED: NITROGLYCERIN 1000MCG/10ML SYRINGE INTRACORON ONE (11:40)
--- NOTE | 2019-07-10 12:14 | CDI ---
Documentation Clarification Form Date: 07/10/2019 11:46:42 AM From: Hailey Duque RN CCDS Admit Date: 07/09/2019 3:09:00 PM Patient Name: Florencia Elam Visit Number: [id number] Discharge Date: ATTENTION: The Clinical Documentation Specialists (CDI) and [facility] Coding Staff appreciate your assistance in clarifying documentation. Please respond to the clarification below the line at the bottom and electronically sign. The CDI & [facility] Coding staff will review the response and follow-up if needed. Please note: Queries are made part of the Legal Health Record. If you have any questions, please contact the author of this message via ITS. Dr. Magaly Douglas CHF is documented in the ED Impressions 07/09/2019 History/Risk Factors: 89-year-old female presents to the ED via EMS for chest pain. Medical History HTN, Persistent Atrial Fibrillation with sick sinus syndrome with underlying pacemaker. Clinical Indicators: Per your consult 07/09/2019 Echocardiogram from March revealed preserved systolic function with pulmonary HTN and moderate aortic stenosis VS/Pulse OX: 07/09/2019 179.95 100 97.6 17 96% 2L nc BNP: 3640 Echocardiogram Results: March 2019 mild concentric left ventricular hypertrophy. Left ventricular systolic function is normal with an EF between 60-65%. La is moderately dilated 34-39ml/m2 Chest X Ray: Chronic changes and cardiomegaly without new acute pulmonary process. Home medications Lasix 20mg po daily, Cozaar 25 mg po daily Treatment: 07/09/19 Lasix 20mg Iv x2: 07/10/19 Lasix 20 mg po daily Cozaar 25mg po daily changed to Cozaar 50mg po daily In your professional opinion, can you please clarify the acuity and type of CHF if known? * Chronic Diastolic Heart Failure POA * Acute on Chronic Diastolic Heart Failure POA * Unable to Determine * Other, please specify (Last Revision: December 2017) Acute on Chronic Diastolic Heart Failure POA MTDD
--- NOTE | 2019-07-10 12:38 | PTCA ---
PERCUTANEOUSTRANS CORORONARY ANGIOGRAPHY DATE OF SERVICE: 07/10/2019. PROCEDURE: 1. PTCA and stenting of mid circumflex coronary artery, a codominant vessel with 3 drug-eluting stents. 2. PTCA and stenting of mid LAD with a drug-eluting stent. PERFORMED BY: Dr. Clementine Douglas SEDATION: Moderate conscious sedation time was 59 minutes. Patient was administered Versed. Oxygen saturation, hemodynamics and EKG were monitored closely. CLINICAL INFORMATION: Mrs. Florencia Elam is an 89-year-old lady with atrial fibrillation, sick sinus syndrome, hypertension, hyperlipidemia, mild to moderate aortic stenosis. She has an underlying permanent single-chamber pacemaker. She came into the hospital with chest pain suggestive of angina, troponin elevation, went on to have a non-ST elevation [place]. Dr. Ta who sees her in the office, performed cardiac cath from right femoral approach. Study revealed a 90% mid circumflex lesion within the previously stented segment. Apparently she had stents in 2007. LAD was a [place] lesion in the midportion of about 70%-80%. Both are calcified lesions. She was advised intervention that was performed in the same setting. PROCEDURE NOTE: A 6-[place] JL4 guide catheter was used to cannulate the left coronary artery. A run- through wire was used to cross the lesion. The circumflex wire was kept distally. A 2.5 caliber 12 mm NC Trek balloon was used to dilate the entire mid lesion. I deployed a 2.75 caliber 18 mm stent in the mid circumflex. Good angiographic result was achieved. Distal to the stent there was still an area of haziness. This was addressed with a 2.5 caliber 12 mm Xience stent. Proximal to the stent another 8 mm 2.75 caliber Xience stent was deployed. Excellent angiographic result without complication was achieved. Patient had chest pain, but no new EKG changes. I then turned my attention to the LAD. Predilatation of the mid LAD was performed with a 2.5 caliber 12 mm balloon. I then deployed an 18 mm long 2.0 caliber vahe stent and then post-dilated this with a 2.5 caliber NC Trek balloon up to 12 atmospheres. Excellent angiographic result was achieved without complication. The sheath was taken out and Angio-Seal device used to secure hemostasis. There was still some oozing and prolonged manual pressure was applied. Patient received Angiomax bolus and infusion and also 600 mg of Plavix were given. The patient was sent to the room in a stable condition. Results were discussed with the patient. There was no other family members available. Excellent angiographic result without complication was achieved. GYPSY / MANNY: [id number] /
[2019-07-10] MEDS: SODIUM CHLORIDE 0.9% 1,000 ML IV SCH (12:43)
--- NOTE | 2019-07-10 13:57 | PN ---
PROGRESS NOTE This lady was seen by me yesterday. She has mild to moderate aortic stenosis and also non ST elevation [place], previous stenting of circumflex several years ago, details unavailable. She is doing well this morning. No chest pain, but troponin profile suggests non ST elevation [place]. I am advising cardiac catheterization. I will try and communicate with the daughter. Her vitals are stable. S1, S2 heard normally. Short systolic murmur noted at the base. Second heart sound is preserved. Lungs are clear. Abdomen and lower extremity exam is unchanged. This lady has sick sinus syndrome, chronic persistent atrial fibrillation with underlying single-chamber pacemaker, but she is now in and out of sinus rhythm. She also has hypertension, hyperlipidemia, previous stenting of circumflex. Cardiac cath by Dr. Ta. Rationale, risks, benefits options explained. Patient understands and wishes to proceed. MMODL / IJN: [id number] /
[2019-07-10 15:29] VITALS: BMI 31.2
[2019-07-10] MEDS: HYDROcodone/APAP 5-325MG 1 EACH TAB PO PRN ×2 (15:33→21:05)
[2019-07-10] MEDS: ATORVASTATIN 40 MG TAB PO SCH (20:34)
[2019-07-11] MEDS: SODIUM CHLORIDE 0.9% 1,000 ML IV SCH (05:27)
[2019-07-11] MEDS: PANTOPRAZOLE 40 MG TABLET PO SCH (06:14)
[2019-07-11] MEDS: LEVOTHYROXINE 100 MCG TAB PO SCH (06:14)
[2019-07-11 06:25] LABS: Basophils % (A) 0 %; Eosinophils # (A) 0.1 k/uL (0-0.7); Eosinophils % (A) 2 %; HCT 33.5 % (34.0-46.0); Lymphocytes # (A) 1.4 k/uL (1.0-4.8); Lymphocytes % (A) 19 %; MCH 31.5 pg (25.0-35.0); MCHC 32.8 g/dL (31.0-37.0); MCV 96.3 fL (80.0-100.0); Mean Platelet Volume 7.1; Monocytes # (A) 0.5 k/uL (0-1.0); Monocytes % (A) 6 %; Neutrophils % (A) 70 %; Platelet Count 223 k/uL (150-450); RBC 3.48 m/uL (3.80-5.40); RDW 13.7 % (11.5-15.5); WBC 7.2 k/uL (3.8-10.6)
[2019-07-11 06:32] LABS: Albumin 2.8 g/dL (3.5-5.0); Calcium 9.1 mg/dL (8.4-10.2); Potassium 4.3 mmol/L (3.5-5.1); Total Bilirubin 0.4 mg/dL (0.2-1.3); Total Protein 5.4 g/dL (6.3-8.2)
[2019-07-11] MEDS: HYDROcodone/APAP 5-325MG 1 EACH TAB PO PRN ×2 (09:03→20:00)
[2019-07-11] MEDS: FUROSEMIDE 20 MG TAB PO SCH (09:04)
[2019-07-11] MEDS: DOCUSATE 100 MG CAP PO SCH ×2 (09:04→20:00)
[2019-07-11] MEDS: CHOLECALCIFEROL 1,000 UNIT TAB PO SCH (09:04)
[2019-07-11] MEDS: CLOPIDOGREL 75 MG TAB PO SCH (09:04)
[2019-07-11] MEDS: METOPROLOL TARTRATE 50 MG TAB PO SCH ×3 (09:04→20:00)
[2019-07-11] MEDS: ASPIRIN 81 MG PO SCH (09:04)
[2019-07-11] MEDS: LOSARTAN 50 MG TAB PO SCH (09:04)
[2019-07-11] MEDS: ASCORBIC ACID 500 MG TAB PO SCH (09:04)
--- NOTE | 2019-07-11 09:18 | P.PN ---
Subjective Progress Note Date: 07/11/19 Principal diagnosis: Acute non-ST elevation [place] This is a pleasant 89-year-old female patient who presented to the hospital with a chest discomfort and ruled in for acute non-ST patient myocardial infarction. She underwent a heart catheterization yesterday by Dr. 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 The patient underwent successful stenting of both arteries. On follow-up with her today, she did have an episode of hemoptysis. She did have another episode last night. The hemoglobin continues to be stable. She denies any chest pain or chest discomfort or shortness of breath. She continues to be on dual antiplatelet therapy with aspirin as well as Plavix. Also she is on statin. I did recommend the patient to stay overnight one more day to continue watch her for the hemoptysis. I would also continue holding her oral anticoagulation for the atrial fibrillation. Objective - Vital Signs Vital signs: Vital Signs Temp 97.9 F 07/11/19 03:10 Pulse 62 07/11/19 03:10 Resp 18 07/11/19 03:10 BP 119/71 07/11/19 03:10 Pulse Ox 97 07/11/19 03:10 Intake & Output 07/10/19 07/11/19 07/11/19 18:59 06:59 18:59 Intake Total 575 240 Output Total 500 300 Balance 75 -60 Weight 72.6 kg Intake: IV 200 Intake, IV Titration 375 Amount Sodium Chloride 0.9% 1, 375 000 ml @ 75 mls/hr IV . [id number] [facility] Rx#:[id number] Oral 240 Output: Urine 500 300 Other: Voiding Method Bedside Commode # Voids 2 # Bowel Movements 1 - Constitutional General appearance: Present: no acute distress - Respiratory Respiratory: bilateral: CTA - Cardiovascular Rhythm: regular Heart sounds: normal: S1, S2 - Labs CBC & Chem 7: 07/11/19 05:39 07/11/19 05:39 Labs: Abnormal Lab Results - Last 24 Hours (Table) 07/11/19 07/11/19 Range/Units 05:39 05:39 RBC 3.48 L (3.80-5.40) m/uL Hgb 11.0 L (11.4-16.0) gm/dL Hct 33.5 L (34.0-46.0) % Sodium 134 L (137-145) mmol/L BUN 34 H (7-17) mg/dL Creatinine 1.22 H (0.52-1.04) mg/dL Total Protein 5.4 L (6.3-8.2) g/dL Albumin 2.8 L (3.5-5.0) g/dL Assessment and Plan Assessment: Assessment #1 acute non-ST elevation myocardial infarction #2 severe CAD and status post a stenting of the LCx and LAD #3 paroxysmal atrial fibrillation Plan #1 continue dual antiplatelet therapy along with a statin #2 continue holding oral anticoagulation #3 monitor the patient for additional 24 hours
--- NOTE | 2019-07-11 12:58 | P.PN ---
Subjective Progress Note Date: 07/11/19 This is an 89-year-old female, patient of Dr. Da Silva. She presents today by EMS after worsening chest pain x1 day. Patient noted chest pain, described as burning across her chest and shoulders after eating a piece of pizza, she attributed this to gas initially. When she woke this morning the pain was i ncreasingly worse, she felt short of breath, with pain traveling down her left arm. At this point she called EMS. She was given nitro with some relief. Once in ER, patient was given IV Lopressor and IV Lasix for EKG changes and will remain on Eliquis, per cardiology. Initial troponin 0.312. Patient has past medical history of atrial fibrillation, on Eliquis. Patient underwent pacemaker placement in March 2019 for atrial arrhythmias and bradycardia. 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 Patient is currently alert and oriented 3, complaining of minor burning in her chest, d enies shortness of breath, denies fever, difficulty urinating, though does have urinary urgency. Patient reports pain with palpation in her right posterior calf, states it feels like there is a rock in her leg. Site is non-erythematous or edematous. On 07/10/2019 patient's alert and oriented 3. Troponins increasing to 9.370 and 12.8 last night. Patient was started on heparin drip per cardiology. Plans for cardiac catheterization today per cardiology. She has remained chest pain- free. Patient is resting comfortably in bed. Patient does complain of occasional shortness of breath. Patient denies nausea vomiting or diarrhea. Patient denies any urinary burning or frequency On 07/11/2019 patient was seen and examined on the telemetry floor she is alert and oriented 3 in no apparent distress she is complaining of fatigue and weakness otherwise she denies any complaints there is no fever or chills no headache or dizziness no chest pain no shortness of breath no cough no nausea or vomiting no abdominal pain no diarrhea and no urinary symptoms Objective - Vital Signs Vital signs: Vital Signs Temp 97.9 F 07/11/19 03:10 Pulse 62 07/11/19 03:10 Resp 18 07/11/19 03:10 BP 119/71 07/11/19 03:10 Pulse Ox 97 07/11/19 03:10 Intake & Output 07/10/19 07/11/19 07/11/19 18:59 06:59 18:59 Intake Total 575 240 Output Total 500 300 Balance 75 -60 Weight 72.6 kg Intake: IV 200 Intake, IV Titration 375 Amount Sodium Chloride 0.9% 1, 375 000 ml @ 75 mls/hr IV . [id number] [facility] Rx#:[id number] Oral 240 Output: Urine 500 300 Other: Voiding Method Bedside Commode # Voids 2 # Bowel Movements 1 - Exam In general patient is alert and oriented 3 in no apparent distress Head normocephalic and atraumatic Neck supple no JVD no goiter Lungs diminished to auscultation bilaterally no wheezing or crackles Heart regular rate and rhythm S1-S2, no rub or gallop, murmur present. Abdomen is soft nontender nondistended positive bowel sounds no hepatosplenomegaly Extremities no edema, right calf tender to touch, nonerythematous or edematous. Neuro no gross focal neurological deficit - Labs CBC & Chem 7: 07/11/19 05:39 07/11/19 05:39 Labs: Abnormal Lab Results - Last 24 Hours (Table) 07/11/19 07/11/19 Range/Units 05:39 05:39 RBC 3.48 L (3.80-5.40) m/uL Hgb 11.0 L (11.4-16.0) gm/dL Hct 33.5 L (34.0-46.0) % Sodium 134 L (137-145) mmol/L BUN 34 H (7-17) mg/dL Creatinine 1.22 H (0.52-1.04) mg/dL Total Protein 5.4 L (6.3-8.2) g/dL Albumin 2.8 L (3.5-5.0) g/dL Assessment and Plan Plan: 1. Chest pain likely related to non-ST elevated myocardial infarction. Cardiology consulted and saw patient in the ER . Nitro patch in place. IV Lopressor and IV Lasix given for EKG changes per cardiology. Patient will remain on eliquis. Initial troponin 0.312. BNP 3640. Echo completed in March 2019 showing EF 60-65% and moderate pulmonary hypertension. Troponins increasing to 9.370, 12.8 and 9.54. Patient was started on heparin drip was negative per cardiology. Patient underwent cardiac catheterization yesterday and had 3 stent placement in the mid circumflex artery and one stent placement in the mid LAD. 2. History of atrial arrhythmias. Pacemaker placed in March 2019. Ventricular paced at 60-130. 3. Hypertension essential taking Cozaar. 4. History of MT. Patient did not have typical symptoms, this was described as a silent MT in which she underwent a cardiac stents in approximately 2007. 5. History of GERD with reflux on omeprazole at home 6. Hypothyroidism on Synthroid at home. TSH ordered 7. 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 8. Right lower extremity calf pain will order venous Doppler 9. Generalized weakness at this time will provide a walker and consult physical therapy to increase mobility DVT prophylaxis eliquis. GI prophylaxis Pepcid
[2019-07-11] MEDS: ATORVASTATIN 40 MG TAB PO SCH (20:00)
[2019-07-12] MEDS: PANTOPRAZOLE 40 MG TABLET PO SCH (06:18)
[2019-07-12] MEDS: LEVOTHYROXINE 100 MCG TAB PO SCH (06:18)
[2019-07-12 06:20] LABS: Basophils % (A) 1 %; Eosinophils # (A) 0.4 k/uL (0-0.7); Eosinophils % (A) 5 %; HCT 34.7 % (34.0-46.0); HGB 11.2 gm/dL (11.4-16.0); Lymphocytes # (A) 1.4 k/uL (1.0-4.8); Lymphocytes % (A) 21 %; MCH 31.9 pg (25.0-35.0); MCHC 32.3 g/dL (31.0-37.0); MCV 98.6 fL (80.0-100.0); Mean Platelet Volume 7.8; Monocytes # (A) 0.5 k/uL (0-1.0); Monocytes % (A) 8 %; Neutrophils % (A) 61 %; Platelet Count 200 k/uL (150-450); RBC 3.52 m/uL (3.80-5.40); RDW 13.9 % (11.5-15.5); WBC 6.5 k/uL (3.8-10.6)
[2019-07-12 06:29] LABS: Albumin 2.8 g/dL (3.5-5.0); Calcium 8.9 mg/dL (8.4-10.2); Potassium 4.5 mmol/L (3.5-5.1); Total Bilirubin 0.4 mg/dL (0.2-1.3); Total Protein 5.5 g/dL (6.3-8.2)
[2019-07-12] MEDS: ASCORBIC ACID 500 MG TAB PO SCH (08:30)
[2019-07-12] MEDS: FUROSEMIDE 20 MG TAB PO SCH (08:30)
[2019-07-12] MEDS: DOCUSATE 100 MG CAP PO SCH ×2 (08:31→20:10)
[2019-07-12] MEDS: CLOPIDOGREL 75 MG TAB PO SCH (08:31)
[2019-07-12] MEDS: LOSARTAN 50 MG TAB PO SCH (08:31)
[2019-07-12] MEDS: ASPIRIN 81 MG PO SCH (08:32)
[2019-07-12] MEDS: HYDROcodone/APAP 5-325MG 1 EACH TAB PO PRN (08:32)
[2019-07-12] MEDS: METOPROLOL TARTRATE 50 MG TAB PO SCH ×3 (08:33→20:10)
[2019-07-12] MEDS: CHOLECALCIFEROL 1,000 UNIT TAB PO SCH (08:33)
--- NOTE | 2019-07-12 10:12 | P.PN ---
Subjective Progress Note Date: 07/12/19 Principal diagnosis: Acute non-ST elevation [place] This is a pleasant 89-year-old female patient who presented to the hospital with a chest discomfort and ruled in for acute non-ST patient myocardial infarction. She underwent a heart catheterization yesterday by Dr. 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 The patient underwent successful stenting of both arteries. On follow-up with the patient today, July 122018, the patient is asymptomatic and denies any chest pain or chest discomfort or shortness of breath. No more episode of hemoptysis. She continues to be on dual antiplatelet therapy. From the cardiac vascular standpoint of view, the patient can be discharged home. Objective - Vital Signs Vital signs: Vital Signs Temp 97.6 F 07/12/19 08:20 Pulse 77 07/12/19 08:20 Resp 18 07/12/19 08:20 BP 105/57 07/12/19 08:20 Pulse Ox 95 07/12/19 08:20 Intake & Output 07/11/19 07/12/19 07/12/19 18:59 06:59 18:59 Intake Total 440 Output Total 300 900 Balance 140 -900 Weight 76.5 kg Intake: Oral 440 Output: Urine 300 900 Other: Voiding Method Bedside Commode Bedside Commode Bedside Commode # Voids 1 1 # Bowel Movements 1 - Constitutional General appearance: Present: no acute distress - Respiratory Respiratory: bilateral: CTA - Cardiovascular Rhythm: regular Heart sounds: normal: S1, S2 - Labs CBC & Chem 7: 07/12/19 05:40 07/12/19 05:40 Labs: Abnormal Lab Results - Last 24 Hours (Table) 07/12/19 07/12/19 Range/Units 05:40 05:40 RBC 3.52 L (3.80-5.40) m/uL Hgb 11.2 L (11.4-16.0) gm/dL Sodium 136 L (137-145) mmol/L Carbon Dioxide 21 L (22-30) mmol/L BUN 33 H (7-17) mg/dL Creatinine 1.35 H (0.52-1.04) mg/dL Total Protein 5.5 L (6.3-8.2) g/dL Albumin 2.8 L (3.5-5.0) g/dL Assessment and Plan Assessment: Assessment #1 acute non-ST elevation myocardial infarction #2 severe CAD and status post a stenting of the LCx and LAD #3 paroxysmal atrial fibrillation Plan #1 continue dual antiplatelet therapy along with a statin #2 the patient can be discharged home
--- NOTE | 2019-07-12 14:03 | P.PN ---
Subjective Progress Note Date: 07/12/19 This is an 89-year-old female, patient of Dr. Da Silva. She presents today by EMS after worsening chest pain x1 day. Patient noted chest pain, described as burning across her chest and shoulders after eating a piece of pizza, she attributed this to gas initially. When she woke this morning the pain was i ncreasingly worse, she felt short of breath, with pain traveling down her left arm. At this point she called EMS. She was given nitro with some relief. Once in ER, patient was given IV Lopressor and IV Lasix for EKG changes and will remain on Eliquis, per cardiology. Initial troponin 0.312. Patient has past medical history of atrial fibrillation, on Eliquis. Patient underwent pacemaker placement in March 2019 for atrial arrhythmias and bradycardia. 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 Patient is currently alert and oriented 3, complaining of minor burning in her chest, d enies shortness of breath, denies fever, difficulty urinating, though does have urinary urgency. Patient reports pain with palpation in her right posterior calf, states it feels like there is a rock in her leg. Site is non-erythematous or edematous. On 07/10/2019 patient's alert and oriented 3. Troponins increasing to 9.370 and 12.8 last night. Patient was started on heparin drip per cardiology. Plans for cardiac catheterization today per cardiology. She has remained chest pain- free. Patient is resting comfortably in bed. Patient does complain of occasional shortness of breath. Patient denies nausea vomiting or diarrhea. Patient denies any urinary burning or frequency On 07/11/2019 patient was seen and examined on the telemetry floor she is alert and oriented 3 in no apparent distress she is complaining of fatigue and weakness otherwise she denies any complaints there is no fever or chills no headache or dizziness no chest pain no shortness of breath no cough no nausea or vomiting no abdominal pain no diarrhea and no urinary symptoms On 07/12/2019 patient was seen and examined on telemetry floor she is alert and oriented 3 she was evaluated earlier by cardiology and was cleared for discharge however patient is very weak and unsteady with her gait. At this time will continue physical therapy for 1 more day, if patient is not ready to go home tomorrow will discharge her to a rehab facility. Otherwise patient is doing well there is no fever or chills no headache or dizziness no chest pain no shortness of breath no cough no nausea or vomiting no abdominal pain no diarrhea no burning with urination no frequency or urgency and no hematuria. Objective - Vital Signs Vital signs: Vital Signs Temp 97.6 F 07/12/19 08:20 Pulse 66 07/12/19 11:25 Resp 16 07/12/19 11:25 BP 114/47 07/12/19 11:25 Pulse Ox 95 07/12/19 11:25 Intake & Output 07/11/19 07/12/19 07/12/19 18:59 06:59 18:59 Intake Total 440 Output Total 300 900 Balance 140 -900 Weight 76.5 kg Intake: Oral 440 Output: Urine 300 900 Other: Voiding Method Bedside Commode Bedside Commode Bedside Commode # Voids 1 1 # Bowel Movements 1 - Exam In general patient is alert and oriented 3 in no apparent distress Head normocephalic and atraumatic Neck supple no JVD no goiter Lungs diminished to auscultation bilaterally no wheezing or crackles Heart regular rate and rhythm S1-S2, no rub or gallop, murmur present. Abdomen is soft nontender nondistended positive bowel sounds no hepatosplenomegaly Extremities no edema, right calf tender to touch, nonerythematous or edematous. Neuro no gross focal neurological deficit - Labs CBC & Chem 7: 07/12/19 05:40 07/12/19 05:40 Labs: Abnormal Lab Results - Last 24 Hours (Table) 07/12/19 07/12/19 Range/Units 05:40 05:40 RBC 3.52 L (3.80-5.40) m/uL Hgb 11.2 L (11.4-16.0) gm/dL Sodium 136 L (137-145) mmol/L Carbon Dioxide 21 L (22-30) mmol/L BUN 33 H (7-17) mg/dL Creatinine 1.35 H (0.52-1.04) mg/dL Total Protein 5.5 L (6.3-8.2) g/dL Albumin 2.8 L (3.5-5.0) g/dL Assessment and Plan Plan: 1. Chest pain likely related to non-ST elevated myocardial infarction. Cardiology consulted and saw patient in the ER . Nitro patch in place. IV Lopressor and IV Lasix given for EKG changes per cardiology. Patient will remain on eliquis. Initial troponin 0.312. BNP 3640. Echo completed in March 2019 showing EF 60-65% and moderate pulmonary hypertension. Troponins increasing to 9.370, 12.8 and 9.54. Patient was started on heparin drip was negative per cardiology. Patient underwent cardiac catheterization yesterday and had 3 stent placement in the mid circumflex artery and one stent placement in the mid LAD. 2. History of atrial arrhythmias. Pacemaker placed in March 2019. Ventricular paced at 60-130. 3. Hypertension essential taking Cozaar. 4. History of CT. Patient did not have typical symptoms, this was described as a silent CT in which she underwent a cardiac stents in approximately 2007. 5. History of GERD with reflux on omeprazole at home 6. Hypothyroidism on Synthroid at home. TSH ordered 7. 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 8. Right lower extremity calf pain will order venous Doppler 9. Generalized weakness at this time will provide a walker and consult physical therapy to increase mobility DVT prophylaxis eliquis. GI prophylaxis Pepcid
[2019-07-12] MEDS: ATORVASTATIN 40 MG TAB PO SCH (20:10)
[2019-07-13] MEDS: PANTOPRAZOLE 40 MG TABLET PO SCH (06:06)
[2019-07-13] MEDS: LEVOTHYROXINE 100 MCG TAB PO SCH (06:06)
[2019-07-13 08:29] VITALS: RESP 16; TEMP 97.6
[2019-07-13] MEDS: CHOLECALCIFEROL 1,000 UNIT TAB PO SCH (08:52)
[2019-07-13] MEDS: ASCORBIC ACID 500 MG TAB PO SCH (08:52)
[2019-07-13] MEDS: FUROSEMIDE 20 MG TAB PO SCH (08:52)
[2019-07-13] MEDS: ASPIRIN 81 MG PO SCH (08:52)
[2019-07-13] MEDS: CLOPIDOGREL 75 MG TAB PO SCH (08:52)
[2019-07-13] MEDS: LOSARTAN 50 MG TAB PO SCH (08:52)
[2019-07-13] MEDS: METOPROLOL TARTRATE 50 MG TAB PO SCH (08:52)
[2019-07-13] MEDS: DOCUSATE 100 MG CAP PO SCH (08:53)
[2019-07-13] MEDS: HYDROcodone/APAP 5-325MG 1 EACH TAB PO PRN (08:56)
[2019-07-13 09:17] LABS: Basophils % (A) 1 %; Eosinophils # (A) 0.3 k/uL (0-0.7); Eosinophils % (A) 5 %; HCT 35.6 % (34.0-46.0); Lymphocytes # (A) 1.7 k/uL (1.0-4.8); Lymphocytes % (A) 25 %; MCH 30.5 pg (25.0-35.0); MCHC 30.8 g/dL (31.0-37.0); Mean Platelet Volume 7.6; Monocytes # (A) 0.4 k/uL (0-1.0); Monocytes % (A) 5 %; Neutrophils # (A) 4.1 k/uL (1.3-7.7); Neutrophils % (A) 61 %; Platelet Count 222 k/uL (150-450); RBC 3.59 m/uL (3.80-5.40); RDW 13.8 % (11.5-15.5); WBC 6.8 k/uL (3.8-10.6)
[2019-07-13 09:30] LABS: Albumin 3.2 g/dL (3.5-5.0); Calcium 9.4 mg/dL (8.4-10.2); Potassium 4.3 mmol/L (3.5-5.1); Total Bilirubin 0.3 mg/dL (0.2-1.3)
--- NOTE | 2019-07-13 13:06 | P.DS ---
Providers Date of admission: 07/09/19 15:09 Expected date of discharge: 07/13/19 Attending physician: Hussein Shultz Consults: 07/09/19 12:36 Consult Physician Stat Consulting Provider: Magaly Douglas Consult Reason/Comments: Elevated troponin and EKG changes Do you want consulting provider notified?: Already Contacted Primary care physician: Angela Da Silva Hospital Course: Discharge diagnosis 1. Chest pain likely related to non-ST elevated myocardial infarction. Cardiology consulted and saw patient in the ER . Nitro patch in place. IV Lopressor and IV Lasix given for EKG changes per cardiology. Patient will remain on eliquis. Initial troponin 0.312. BNP 3640. Echo completed in March 2019 showing EF 60-65% and moderate pulmonary hypertension. Troponins increasing to 9.370, 12.8 and 9.54. Patient was started on heparin drip was negative per cardiology. Patient underwent cardiac catheterization yesterday and had 3 stent placement in the mid circumflex artery and one stent placement in the mid LAD. Patient has been cleared for discharge from cardiology standpoint continue dual anti-platelet therapy of Plavix and aspirin along with statin. Eliquis currently on hold until follow-up cardiology appointment 2. History of atrial arrhythmias. Pacemaker placed in March 2019. Ventricular paced at 60-130. 3. Hypertension essential taking Cozaar. 4. History of LA. Patient did not have typical symptoms, this was described as a silent LA in which she underwent a cardiac stents in approximately 2007. 5. History of GERD with reflux on omeprazole at home 6. Hypothyroidism on Synthroid at home. TSH level low at 0.408 will decrease Synthroid dose to 88mcg. recommend follow-up in 6 weeks 7. 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 8. Right lower extremity calf pain. Venous Doppler completed showing no evidence of DVT in right lower leg 9. Generalized weakness at this time will provide a walker and consult physical therapy to increase mobility 10. Hemopytysis. Eliquis on hold per cardiology recommendation continue to hold on discharge until follow-up ointment 11. Paroxysmal atrial fibrillation. Eliquis will be on hold her cardiology recommendation until follow-up appointment in 1 week Hospital course This is an 89-year-old female, patient of Dr. Da Silva. She presents today by EMS after worsening chest pain x1 day. Patient noted chest pain, described as burning across her chest and shoulders after eating a piece of pizza, she attributed this to gas initially. When she woke this morning the pain was increasingly worse, she felt short of breath, with pain traveling down her left arm. At this point she called EMS. She was given nitro with some relief. Once in ER, patient was given IV Lopressor and IV Lasix for EKG changes and will remain on Eliquis, per cardiology. Initial troponin 0.312. Patient has past medical history of atrial fibrillation, on Eliquis. Patient underwent pacemaker placement in March 2019 for atrial arrhythmias and bradycardia. 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 Patient is currently alert and oriented 3, complaining of minor burning in her chest, denies shortness of breath, denies fever, difficulty urinating, though does have urinary urgency. Patient reports pain with palpation in her right posterior calf, states it feels like there is a rock in her leg. Site is non-erythematous or edematous. On 07/10/2019 patient's alert and oriented 3. Troponins increasing to 9.370 and 12.8 last night. Patient was started on heparin drip per cardiology. Plans for cardiac catheterization today per cardiology. She has remained chest pain- free. Patient is resting comfortably in bed. Patient does complain of occasional shortness of breath. Patient denies nausea vomiting or diarrhea. Patient denies any urinary burning or frequency On 07/11/2019 patient was seen and examined on the telemetry floor she is alert and oriented 3 in no apparent distress she is complaining of fatigue and we akness otherwise she denies any complaints there is no fever or chills no headache or dizziness no chest pain no shortness of breath no cough no nausea or vomiting no abdominal pain no diarrhea and no urinary symptoms On 07/12/2019 patient was seen and examined on telemetry floor she is alert and oriented 3 she was evaluated earlier by cardiology and was cleared for discharge however patient is very weak and unsteady with her gait. At this time will continue physical therapy for 1 more day, if patient is not ready to go home tomorrow will discharge her to a rehab facility. Otherwise patient is doing well there is no fever or chills no headache or dizziness no chest pain no shortness of breath no cough no nausea or vomiting no abdominal pain no diarrhea no burning with urination no frequency or urgency and no hematuria. On 07/13/2019 patient's alert and oriented 3. Patient worked with physical therapy today recommending home with home health care. Patient has been cleared by cardiology services. Patient will be discharged home on aspirin and Plavix per cardiology recommendation. Eliquis to be held per cardiology until follow- up appointment patient started on statin and Lopressor. Synthroid decreased to 88 g recommend six-week follow-up. Patient to follow-up with PCP and cardiology services for further management. At this time no signs of bleeding. Patient denies chest pain or shortness of breath. Patient denies nausea vomiting or diarrhea. Patient denies any urinary burning or frequency I performed an examination of the patient and discussed their management with the Nurse Practitioner. I have reviewed the Nurse Practitioner's notes and agree with the documented findings and plan of care Patient Condition at Discharge: Stable Plan - Discharge Summary Discharge Rx Participant: No New Discharge Prescriptions: New Atorvastatin [Lipitor] 40 mg PO HS 30 Days #30 tab Metoprolol Tartrate [Lopressor] 50 mg PO BID 30 Days #60 tab Clopidogrel [Plavix] 75 mg PO DAILY 30 Days #30 tab Levothyroxine Sodium [Synthroid] 88 mcg PO DAILY@0630 30 Days #30 tab Continue Ascorbic Acid [Vitamin C] 500 mg PO DAILY Omeprazole 20 mg PO BID Albuterol Sulfate [Proair Hfa] 2 puff INHALATION RT-QID PRN PRN Reason: Shortness Of Breath Cholecalciferol [Vitamin D3 (25 Mcg = 1000 Iu)] 5,000 unit PO DAILY Docusate [Colace] 100 mg PO BID cap Aspirin 81 mg PO DAILY chew Losartan [Cozaar] 25 mg PO DAILY tab Furosemide [Lasix] 20 mg PO DAILY tab HYDROcodone/APAP 5-325MG [[place] 5-325] 1 tab PO TID PRN 14 Days #42 tab PRN Reason: Pain Discontinued Levothyroxine Sodium [Synthroid] 100 mcg PO DAILY Apixaban [Eliquis] 2.5 mg PO BID@0800,2000 tablet Discharge Medication List Albuterol Sulfate [Proair Hfa] 2 puff INHALATION RT-QID PRN 07/28/16 [History] Ascorbic Acid [Vitamin C] 500 mg PO DAILY 07/28/16 [History] Omeprazole 20 mg PO BID 10/29/16 [History] Cholecalciferol [Vitamin D3 (25 Mcg = 1000 Iu)] 5,000 unit PO DAILY 04/24/19 [History] Aspirin 81 mg PO DAILY chew 04/28/19 [Rx] Docusate [Colace] 100 mg PO BID cap 04/28/19 [Rx] Furosemide [Lasix] 20 mg PO DAILY tab 04/28/19 [Rx] HYDROcodone/APAP 5-325MG [[place] 5-325] 1 tab PO TID PRN 14 Days #42 tab 04/28/19 [Rx] Losartan [Cozaar] 25 mg PO DAILY tab 04/28/19 [Rx] Atorvastatin [Lipitor] 40 mg PO HS 30 Days #30 tab 07/13/19 [Rx] Clopidogrel [Plavix] 75 mg PO DAILY 30 Days #30 tab 07/13/19 [Rx] Levothyroxine Sodium [Synthroid] 88 mcg PO DAILY@0630 30 Days #30 tab 07/13/19 [Rx] Metoprolol Tartrate [Lopressor] 50 mg PO BID 30 Days #60 tab 07/13/19 [Rx] Follow up Appointment(s)/Referral(s): [facility], [NON-STAFF] - Angela Da Silva MD [Primary Care Provider] - 1-2 days
--- NOTE | 2019-07-13 13:29 | P.PN ---
Subjective This is Jessica Rocha PA-C dictating a progress note on this patient The patient was interviewed and examined by me as well as by Dr. Maldonado Case discussed with Dr. Maldonado and he agrees with the plan of care IMPRESSION / ASSESSMENT: Non-ST elevation OK status post stenting to the LAD and circumflex Coronary artery disease Persistent atrial fibrillation, eliquis on hold secondary to hemoptysis Sick sinus syndrome status post pacemaker placement Hypertension Dyslipidemia PLAN: Change metoprolol from 50 mg 3 times a day to 50 mg twice a day Continue holding eliquis secondary to hemoptysis continue ASA and plavix repeat echo to assess LV function HPI/interval history Patient is an 89-year-old female past medical history significant for CAD status post stenting, persistent atrial fibrillation, sick sinus syndrome status post p acemaker placement, hypertension, dyslipidemia who presented with complaints of chest discomfort.Troponins were elevated and she underwent coronary angiogram which revealed 95% stenosis in the proximal LAD as well as 95% stenosis in the proximal left circumflex and 70% stenosis in the distal circumflex. She underwent successful stenting of the LAD and circumflex. Patient seen and examined resting comfortably in bed. States she still feels "tired" and weak. Denies any dizziness. No chest pain or shortness of breath. EXAMINATION Temperature 97.6F, pulse 67, respirations 16, blood pressure 139/64, oxygen saturation 94% on room air Patient seen and examined resting comfortably in bed, in no acute distress Lungs are clear to auscultation bilaterally, no wheezing rhonchi or crackles noted Heart is regular, systolic murmur noted No elevated JVD No lower extremity edema REVIEW OF LABS, ECG WBC 6.8, hemoglobin 11, platelets 222, potassium 4.3, BUN 31, creatinine 1.27 Total cholesterol 206, LDL 130, HDL 54, triglycerides 110 Previous echocardiogram in March showed EF 60-65% Objective - Vital Signs Vital signs: Vital Signs Temp 97.6 F 07/13/19 08:00 Pulse 75 07/13/19 12:00 Resp 16 07/13/19 12:00 BP 128/71 07/13/19 12:00 Pulse Ox 99 07/13/19 12:00 Intake & Output 07/12/19 07/13/19 07/13/19 18:59 06:59 18:59 Intake Total 100 480 Output Total 700 Balance 100 -700 480 Weight 74.5 kg Intake: Oral 100 480 Output: Urine 700 Other: Voiding Method Bedside Commode Bedside Commode # Voids 3 1 1 - Labs CBC & Chem 7: 07/13/19 08:45 07/13/19 08:45 Labs: Abnormal Lab Results - Last 24 Hours (Table) 07/13/19 07/13/19 Range/Units 08:45 08:45 RBC 3.59 L (3.80-5.40) m/uL Hgb 11.0 L (11.4-16.0) gm/dL MCHC 30.8 L (31.0-37.0) g/dL Sodium 135 L (137-145) mmol/L BUN 31 H (7-17) mg/dL Creatinine 1.27 H (0.52-1.04) mg/dL Glucose 122 H (74-99) mg/dL Total Protein 6.0 L (6.3-8.2) g/dL Albumin 3.2 L (3.5-5.0) g/dL
[2019-07-13 15:37] VITALS: BP 120/56; PULSE 61
[2019-07-13] MEDS ORDERED: METOPROLOL TARTRATE 50 MG TAB PO SCH (21:00)
[2019-07-14] MEDS ORDERED: LEVOTHYROXINE 88 MCG TAB PO SCH (06:30)
--- NOTE | 2019-07-14 11:57 | ECHOF ---
Referral Reason:NSTEMI s/p stenting MEASUREMENTS -------- HEIGHT: 152.4 cm WEIGHT: 74.4 kg BP: RVIDd: 2.8 cm (< 3.3) IVSd: 1.4 cm (0.6 - 1.1) LVIDd: 3.8 cm (3.9 - 5.3) LVPWd: 1.6 cm (0.6 - 1.1) IVSs: 1.7 cm LVIDs: 3.1 cm LVPWs: 1.8 cm LA Diam: 4.2 cm (2.7 - 3.8) LAESV Index (A-L): 43.90 ml/m Ao Diam: 3.1 cm (2.0 - 3.7) AV Cusp: 1.0 cm (1.5 - 2.6) LA Diam: 3.9 cm (2.7 - 3.8) MV EXCURSION: 14.230 mm (> 18.000) MV EF SLOPE: 56 mm/s (70 - 150) EPSS: 0.5 cm MV E Is[place]: 1.09 m/s MV DecT: 251 ms MV A [place]: 1.06 m/s MV E/A Ratio: 1.03 AV maxP.21 mmHg AV meanP.62 mmHg RAP: 5.00 mmHg RVSP: 36.00 mmHg TAPSE: 17.96 mm FINDINGS -------- Paced rhythm. This was a technically adequate study. The left ventricular size is normal. There is mild concentric left ventricular hypertrophy. Overa ll left ventricular systolic function is mildly impaired with, an EF between 45 - 50 %. Left ventri cular fillimg pressure cannot be estimated due to paced rhythm. The right ventricle is normal in size. The left atrium is markedly dilated. LA is severely dilated >40 ml/m2 The right atrial size is normal. There is mild aortic regurgitation. There is [id number] aortic stenosis present. Peak/hermes n gradient across the Aortic Valve is 52.21mmHg / 29.62mmHg. Mild mitral annular calcification present. Moderate mitral regurgitation is present. Mild tricuspid regurgitation present. There is no evidence of pulmonary hypertension. The right v entricular systolic pressure, as measured by Doppler, is 36.00mmHg. Trace/mild (physiologic) pulmonic regurgitation. The aortic root size is normal. There is no pericardial effusion. CONCLUSIONS -------- 1. Paced rhythm. 2. This was a technically adequate study. 3. The left ventricular size is normal. 4. There is mild concentric left ventricular hypertrophy. 5. Left ventricular fillimg pressure cannot be estimated due to paced rhythm. 6. The right ventricle is normal in size. 7. The left atrium is markedly dilated. 8. LA is severely dilated >40 ml/m2 9. The right atrial size is normal. 10. There is mild aortic regurgitation. 11. There is [id number] aortic stenosis present. 12. Peak/mean gradient across the Aortic Valve is 52.21mmHg / 29.62mmHg. 13. Mild mitral annular calcification present. 14. Moderate mitral regurgitation is present. 15. Mild tricuspid regurgitation present. 16. There is no evidence of pulmonary hypertension. 17. The right ventricular systolic pressure, as measured by Doppler, is 36.00mmHg. 18. Trace/mild (physiologic) pulmonic regurgitation. 19. The aortic root size is normal. 20. There is no pericardial effusion. OPTICIAN MANAGER: Buffy Blood RDCS
== END 2019-07-13 18:02 | disposition home health service (06) | DRG 246 ==
LOC: EC 09:06 → 3SCARD 15:09
PROVIDERS: ADMIT Internal Medicine; ATTEND Internal Medicine
PROC: 027037Z Dilation of Coronary Artery, One Artery with Four or More Drug-eluting Intraluminal Devices, Percutaneous Approach (ICD-10-PCS; principal; 2019-07-10 09:50)
PROC: B2111ZZ Fluoroscopy of Multiple Coronary Arteries using Low Osmolar Contrast (ICD-10-PCS; 2019-07-10 09:50)
PROC: 4A023N7 Measurement of Cardiac Sampling and Pressure, Left Heart, Percutaneous Approach (ICD-10-PCS; 2019-07-10 09:50)
PROC: B2151ZZ Fluoroscopy of Left Heart using Low Osmolar Contrast (ICD-10-PCS; 2019-07-10 09:50)
DX: I21.4 Non-ST elevation (NSTEMI) myocardial infarction (principal); I50.33 Acute on chronic diastolic (congestive) heart failure; I13.0 Hypertensive heart and chronic kidney disease with heart failure and stage 1 through stage 4 chronic kidney disease, or unspecified chronic kidney disease; I48.19 Other persistent atrial fibrillation; E03.9 Hypothyroidism, unspecified; E78.5 Hyperlipidemia, unspecified; I25.10 Atherosclerotic heart disease of native coronary artery without angina pectoris; I25.2 Old myocardial infarction; I27.20 Pulmonary hypertension, unspecified; I35.0 Nonrheumatic aortic (valve) stenosis; I45.4 Nonspecific intraventricular block; J44.9 Chronic obstructive pulmonary disease, unspecified; K21.9 Gastro-esophageal reflux disease without esophagitis; M19.031 Primary osteoarthritis, right wrist; M81.0 Age-related osteoporosis without current pathological fracture; N18.3 Chronic kidney disease, stage 3 (moderate); Z79.01 Long term (current) use of anticoagulants; Z79.82 Long term (current) use of aspirin; Z79.890 Hormone replacement therapy; Z79.899 Other long term (current) drug therapy; Z87.891 Personal history of nicotine dependence; Z90.710 Acquired absence of both cervix and uterus; Z95.0 Presence of cardiac pacemaker; Z96.652 Presence of left artificial knee joint; Z98.42 Cataract extraction status, left eye; Z98.41 Cataract extraction status, right eye; Z79.891 Long term (current) use of opiate analgesic; Z88.1 Allergy status to other antibiotic agents; Z88.8 Allergy status to other drugs, medicaments and biological substances; M79.669 Pain in unspecified lower leg
CPT/HCPCS: 36415; 71046; 80053; 80061; 82550; 83735; 83880; 84443; 84484; 85025; 85610; 85730; 93005; 93306; 93458; 94640; 94760; 96361; 96374; 96375; 99291; C1874

== ENCOUNTER → 2019-10-07 | Outpatient (CLI) | payer MEDICARE ==
--- NOTE | 2019-10-07 20:08 | XR ---
EXAMINATION TYPE: XR foot complete RT DATE OF EXAM: 10/07/2019 COMPARISON: NONE HISTORY: 89-year-old female M79.671, pain at base of fifth metatarsal. TECHNIQUE: 3 views FINDINGS: There is a nondisplaced transverse fracture at the base of the fifth metatarsal. Mild degenerative ch anges at the first MTP joint. Tiny plantar calcaneal spur. No acute fracture, subluxation, dislocatio n. IMPRESSION: Nondisplaced transverse fracture base of the fifth metatarsal.
== END | disposition home or self-care (01) ==
LOC: RADXRMAIN 15:20
PROVIDERS: ATTEND Family Medicine
DX: S92.354A Nondisplaced fracture of fifth metatarsal bone, right foot, initial encounter for closed fracture (principal)